=== PATIENT | male | born 1935 | race Caucasian/White ===

== ENCOUNTER → 2016-07-09 14:52 | Outpatient (CLI) | payer MEDICARE, OTHER ==
[2016-06-17 18:26] VITALS: BMI 27.6
[~2016-07-09 14:52] MED LIST: APRESOLINE50 MG PO; ASPIRIN81 MG PO; CARDURA2 MG PO; CATAPRES0.1 MG PO; CELEXA20 MG PO; COZAAR100 MG PO; ELIQUIS2.5 MG PO; LANTUS SOL100 UNIT/1 SQ; LASIX80 MG PO; MEGACE40 MG PO; MULTIPLE VITAMI1 TA1 PO; NEPHRO-VITE RX1 TAB PO; NEURONTIN 100100 MG PO; NIFEDIPINE ER60 MG PO; NORCO 5/325 TAB1 TA1 PO; NOVOLOG100 U/M1; PAMELOR10 MG PO; PRILOSEC20 MG PO; PROCARDIA XL60 MG PO; PROCRIT/EP40000 UNIT SQ; PROSCAR5 MG PO; PROTONIX40 MG PO; TUMS500 MG OR; TUMS500 MG PO; TYLENOL W/CODEI1 TAB PO; VITAMIN D31000 UNI2 PO; ZOCOR40 MG PO
== END | disposition home or self-care (01) ==
LOC: D.US 14:52
DX: I82.402 Acute embolism and thrombosis of unspecified deep veins of left lower extremity (principal)

== ENCOUNTER 2016-08-08 15:38 | Outpatient (CLI) | payer MEDICARE, OTHER ==
[~2016-08-08 15:38] MED LIST changes: -ELIQUIS2.5 MG PO; -NEPHRO-VITE RX1 TAB PO
[2016-08-08 16:56] VITALS: Ht 180.3 cm
[2016-08-08] MEDS ORDERED: ELIQUIS2.5 MG PO (17:02)
[2016-08-08] MEDS ORDERED: NEPHRO-VITE RX1 TAB PO (17:02)
--- NOTE | 2016-08-08 17:57 | NUR ---
2804 I PHONED [facility] AND SPOKE TO NURSE NEW ADAIR THIS PT, REQUESTING A MEDICATION LIST TO BE FAXED AND TIME FRAME FOR TODAYS' STAY.
--- NOTE | 2016-08-08 17:58 | NUR ---
1740 RENAL ADA DIET SERVED.
--- NOTE | 2016-08-08 19:05 | NUR ---
1830 PT ATE ONLY GRAPES FROM SUPER [facility]RAY AND DRANK SOME LIQUID. STATES HE IS NOT HUNGRY.
--- NOTE | 2016-08-08 19:05 | NUR ---
1854 FIRST UNIT BLOOD CHECKED AT BEDSIDE BY THIS NURSE AND MINA RESENDEZ RN, INITIATED BY ALARIS PUMP AT 50/CC/HR.
--- NOTE | 2016-08-08 19:22 | NUR ---
1909 NO PROBLEMS WITH BLOOD RATE INCREASED TO 100/CC/HR.
--- NOTE | 2016-08-08 19:29 | NUR ---
1924 IV SITE PATENT, PT. DOSING AT INTERVALS, AROUSES WITH V.S. CHECKS. RATE INCREASED TO 125/CC/HR.
--- NOTE | 2016-08-08 20:09 | NUR ---
1944 YOLANDE PEREYRA APN NOTIFIED OF BS AND ORDERS RECEIVED 2009 REPORT PHONED TO CALISTA GILL RN.
--- NOTE | 2016-08-08 21:13 | NUR ---
PT BROUGHT BY BED TO ROOM 2131 FROM OUTPATIENT AT 2109. REPORT GIVEN TO NURSE BY BOOKER CORONA RN AT NURSES STATION. 1ST UNIT OF BLOOD UP AND INFUSING. PT IS STILL TO RECEIVED 1 MORE UNIT AND THEN RETURN TO THE [facility].
--- NOTE | 2016-08-08 21:28 | NUR ---
PT WAS BROUGHT TO ROOM SOILED OF BM. CARE WAS PROVIDED.
--- NOTE | 2016-08-08 21:44 | NUR ---
PRBCS UNIT #1 COMPLETED.
--- NOTE | 2016-08-08 23:10 | NUR ---
STARTED 2ND UNIT OF BLOOD AT 2215. VSS. TRANSPORT PERSON FROM [facility] ARRIVED ON UNIT TO TAKE PATIENT BACK TO RESIDENTIAL. INSTRUCTED THAT 2ND UNIT OF BLOOD JUST NOW INFUSING AND IT WILL BE A MINIMUM OF 2 HOURS BEFORE IT IS COMPLETED. CALLED AND SPOKE WITH THONY NURSE AT [facility]. RELAYED ABOVE INFORMATION.
[2016-08-09 00:38] VITALS: BP 141/63
--- NOTE | 2016-08-09 01:16 | NUR ---
2ND UNIT OF PRBCS COMPLETED AT 0115. VSS. PT RESTING. CALLED THE [facility] AND SPOKE WITH LANA THAT PT WAS NOW READY FOR PICKUP. INFORMED THAT IT MAY BE A WHILE BEFORE THEY CAN GET HIGHWAY ENGINEERING TECHNICIAN BACK UP HERE. PT IS RESTING COMFORTABLY. WILL MONITOR AND LET HIM SLEEP UNTIL [facility] ARRIVES.
--- NOTE | 2016-08-09 03:20 | NUR ---
RESTING IN BED. TRANSPORT FROM THE [facility] HAS NOT ARRIVED YET.
[2016-08-09 05:04] VITALS: BP 128/59
--- NOTE | 2016-08-09 06:20 | NUR ---
SPOKE WITH CHRISTI AT THE [facility] TO QUESTION WHEN PATIENT WILL BE PICKED UP TO BE RETURNED TO THEM. SHE STATES THE INDUSTRIAL ENGINEERING MANAGER WILL PICK HIM UP WHEN HE COMES IN. WILL CONTINUE TO MONITOR.
--- NOTE | 2016-08-09 07:37 | NUR ---
PERSONAL CARE FOR BM INCONTINENCE PROVIDED AND PT THEN DRESSED WITH ASSIST OF STAFF FROM THE [facility] AND THIS NURSE. PT NOW CLEAN AND DRY. DISCHARGE BACK TO THE [facility] PER WRITTEN ORDER.
== END 2016-08-09 07:39 ==
LOC: D.OPS 15:38 → D.M2 20:53 → D.OPS 08-09 07:39
DX: D64.9 Anemia, unspecified (principal)

== ENCOUNTER 2016-09-21 09:17 | Inpatient (IN) | payer MEDICARE, OTHER ==
[~2016-09-21] VITALS: Ht 180.3 cm; Wt 79.2 kg
[2016-09-21] VITALS (12 sets, daily range): BP systolic 96–144; BP diastolic 42–67; BMI 23.9
[~2016-09-21 09:17] MED LIST changes: +ELIQUIS2.5 MG PO; +NEPHRO-VITE RX1 TAB PO
[2016-09-21 10:12] LABS: BASOPHILS 0.1 % (0.0-2.0); EOSINOPHILS 0.2 % (0-7); HEMATOCRIT 29.9 % (42.0-54.0); HEMOGLOBIN 9.6 g/dL (13.5-17.5); IMMATURE GRANULOCYTES 0.4 % (0-5); LYMPHOCYTES 1.6 % (15-50); MCH 30.2 pg (26.0-34.0); MCHC 32.1 g/dL (31.0-37.0); MEAN PLATELET VOLUME 11.1 fL (7.4-10.4); MONOCYTES 1.4 % (2-11); NEUTROPHILS 96.3 % (40-80); RBC 3.18 10x6/uL (4.20-6.10); WBC 12.4 10x3/uL (4.8-10.8)
[2016-09-21 10:13] LABS: PLATELET COUNT 173 10x3/uL (130-400)
[2016-09-21 10:37] LABS: ALBUMIN 2.9 g/dL (3.4-5.0); ANION GAP 18.8 mmol/L (8-16); BILIRUBIN - TOTAL 0.39 mg/dL (0.2-1.3); CALCIUM 8.2 mg/dL (8.5-10.1); CARBON DIOXIDE 22.5 mmol/L (21.0-32.0); CREATININE - SERUM 5.2 mg/dL (0.6-1.3); POTASSIUM - SERUM 3.3 mmol/L (3.5-5.1); PROTEIN - SERUM 6.6 g/dL (6.4-8.2)
--- NOTE | 2016-09-21 12:49 | NUR ---
RECIEVED REPORT FROM HARPREET IN [facility] TO RECIEVE PT TO UNIT.
--- NOTE | 2016-09-21 13:00 | NUR ---
PT ARRIVED FROM ER AT THIS TIME VIA BED. ALERT AND ORIENTED. NO ACUTE DISTRESS NOTED. WILL CONTINUE PLAN OF CARE.
--- NOTE | 2016-09-21 13:19 | NUR ---
PT ABOUT TO START ANTIBIOTICS. WILL START ANTIBIOTICS AFTER DIALYSIS COMPLETE.
--- NOTE | 2016-09-21 15:36 | NUR ---
FAMILY AT BEDSIDE. UPDATE GIVEN. NO ACUTE DISTRESS NOTED. CODE WORD MADE. WILL CONTINUE PLAN OF CARE.
--- NOTE | 2016-09-21 18:26 | NUR ---
LEFT AT THIS TIME FOR CT VIA BED ACCOMPANIED BY HOSPITAL STAFF. NO ACUTE DISTRESS NOTED. WILL CONTINUE PLAN OF CARE.
--- NOTE | 2016-09-21 18:27 | NUR ---
Mr. Castillo had bedside hemodialysis today via his left lower arm av fistula from 1356 until 1656. Average blood flow was 350 mls/minue. Net fluid removed was 2000 mls. Post vital signs were:B/P:103/53, HR:66, Temp: 98.1, Resps:16. Pt. was pretty hypotensive during treatment. Infused albumin 12.5 grams IV times one dose.No other problems.
--- NOTE | 2016-09-21 18:35 | NUR ---
RETURNED FROM CT AT THIS TIME VIA BED. NO ACUTE DISTRESS NOTED. WILL CONTINUE PLAN OF CARE.
--- NOTE | 2016-09-21 19:45 | NUR ---
RECEIVED CARE OF PT, ASSESSMENT PER FLOWSHEET. PT ALERT AND ORIENTED, ON 5L O2 VIA NC, LT LOWER ARM FISUTLA NOTED, DRESSING CDI, POSITIVE BRUIT AND THRILL, PPP, HR SR AT A RATE OF 74 ON CM, BREATH SOUNDS DIMINISHED IN BILATERAL BASES, SKIN ASSESSMENT PER FLOWSHEET. ASSISTED PT TO COMFORTABLE POSITION, CALL LIGHT IN REACH, BED LOW, SR UP X 2, WILL MONITOR.
--- NOTE | 2016-09-21 21:37 | NUR ---
NO VISITORS PRESENT AT THIS TIME, PT RESTING IN BED WITH EYES CLOSED, VSS, CONT TO MONITOR.
--- NOTE | 2016-09-21 23:45 | NUR ---
REASSESSMENT PER FLOWSHEET, NO ACUTE CHANGES NOTED, REPOSITIONED FOR COMFORT, CALL LIGHT IN REACH, CONT POC.
[2016-09-22] VITALS (24 sets, daily range): BP systolic 126–161; BP diastolic 52–84; Ht 180.3 cm; Wt 79.2 kg
--- NOTE | 2016-09-22 01:10 | NUR ---
PT RESTING IN BED WITH EYES CLOSED, AROUSES EASILY TO VOICE, DENIES ANY NEEDS AT THIS TIME, POSITIONED FOR COMFORT, VSS.
--- NOTE | 2016-09-22 03:45 | NUR ---
REASSESSMENT PER FLOWSHEET, PT POSITIONED FOR COMFORT, HR SR WITH PAC'S AT A RATE OF 75 ON CM, PT DENIES ANY NEEDS AT THIS TIME, BED LOW, CALL LIGHT IN REACH.
[2016-09-22 05:01] LABS: BASOPHILS 0.2 % (0.0-2.0); EOSINOPHILS 0.8 % (0-7); HEMATOCRIT 30.7 % (42.0-54.0); HEMOGLOBIN 9.3 g/dL (13.5-17.5); IMMATURE GRANULOCYTES 0.2 % (0-5); LYMPHOCYTES 11.3 % (15-50); MCH 29.4 pg (26.0-34.0); MCHC 30.3 g/dL (31.0-37.0); MONOCYTES 5.5 % (2-11); PLATELET COUNT 153 10x3/uL (130-400); RBC 3.16 10x6/uL (4.20-6.10); RDW 15.4 % (11.5-14.5); WBC 12.8 10x3/uL (4.8-10.8)
[2016-09-22 05:26] LABS: MCV 97.2 fL (80.0-100.0)
--- NOTE | 2016-09-22 05:45 | NUR ---
PT RESTING IN BED WITH EYES CLOSED, VSS, CONT POC.
[2016-09-22 05:48] LABS: ANION GAP 15.8 mmol/L (8-16); CALCIUM 8.3 mg/dL (8.5-10.1); CARBON DIOXIDE 25.9 mmol/L (21.0-32.0); CREATININE - SERUM 3.7 mg/dL (0.6-1.3); PHOSPHOROUS 5.2 mg/dL (2.5-4.9); POTASSIUM - SERUM 3.7 mmol/L (3.5-5.1); VANCOMYCIN - RANDOM 12.3 ug/mL (10.0-20.0)
--- NOTE | 2016-09-22 08:27 | NUR ---
UP IN BED AWAKE EATING BREAKFAST AT THIS TIME VIA SET UP ASSIST. NO ACUTE DISTRESS NOTED. WILL CONTINUE PLAN OF CARE.
--- NOTE | 2016-09-22 09:55 | NUR ---
SPOKE WITH PT DAUGHTER, UPDATE GIVEN. NO ACUTE DISTRESS NOTED. WILL CONTINUE PLAN OF CARE.
--- NOTE | 2016-09-22 11:45 | NUR ---
UP IN CHAIR BESIDE BED AT THIS TIME WITH ASSIST FROM PHYSICAL THERAPY. NO ACUTE DISTRESS NOTED AT THIS TIME. WILL CONTINUE PLAN OF CARE.
--- NOTE | 2016-09-22 13:41 | NUR ---
LYING IN BED AT THIS TIME. NOTED PT HAS DVT TO LEFT LEG PER US DOPPLER LE X2, NOTIFIED DR ANDREWS WHO WAS ON FLOOR TO SEE PT. ORDERS MADE. NO ACUTE DISTRESS NOTED. WILL CONTINUE PLAN OF CARE.
--- NOTE | 2016-09-22 13:51 | NUR ---
INCONTINENT BOWEL MOVEMENT NOTED. LIQUID. SHIRA CARE AND GURROLA CARE PROVIDED VIA MAX ASSIST. PT TURNS SELF INDEPENDENTLY. NO ACUTE DISTRESS NOTED. WILL CONTINUE PLAN OF CARE.
--- NOTE | 2016-09-22 15:06 | NUR ---
UP IN BED EATING SUPPER AT THIS TIME. NO ACUTE DISTRESS NOTED. WILL CONTINUE PLAN OF CARE.
--- NOTE | 2016-09-22 17:57 | NUR ---
UP IN BED WATCHING TV AT THIS TIME. NO ACUTE DISTRESS NOTED. WILL CONTINUE PLAN OF CARE.
--- NOTE | 2016-09-22 19:45 | NUR ---
RESUMED CARE OF PT, ASSESSMENT PER FLOWSHEET. PT ALERT AND ORIENTED X 4, HR SR WITH OCC PAC'S NOTED AT A RATE OF 79, BREATH SOUNDS DIMINISHED IN BASES, PPP, PT DENIES PAIN OR ANY NEEDS AT THIS TIME, BED LOW, CALL LIGHT IN REACH.
--- NOTE | 2016-09-22 21:05 | NUR ---
NO VISITORS PRESENT AT THIS TIME, WATER PROVIDED PER PT REQUEST, VSS.
--- NOTE | 2016-09-22 23:45 | NUR ---
REASSESSMENT PER FLOWSHEET, NO ACUTE CHANGES NOTED AT THIS TIME. ASSISTED PT WITH REPOSITIONING, CALL LIGHT IN REACH, DENIES ANY NEEDS, VSS.
[2016-09-23] VITALS (14 sets, daily range): BP systolic 111–165; BP diastolic 41–95
--- NOTE | 2016-09-23 01:54 | NUR ---
PT RESTING IN BED WITH EYES CLOSED, AROUSES EASILY TO VOICE, DENIES ANY NEEDS AT THIS TIME, BED LOW, CALL LIGHT IN REACH.
--- NOTE | 2016-09-23 03:45 | NUR ---
REASSESSMENT PER FLOWSHEET, NO ACUTE CHANGES NOTED AT THIS TIME. PT DENIES ANY NEEDS, CALL LIGHT IN REACH, BED LOW.
--- NOTE | 2016-09-23 05:15 | NUR ---
ICE WATER PROVIDED PER PT REQUEST, PT DENIES ANY OTHER NEEDS, CALL LIGHT IN REACH, BED LOW.
[2016-09-23 05:30] LABS: BASOPHILS 0.2 % (0.0-2.0); EOSINOPHILS 2.1 % (0-7); HEMATOCRIT 28.9 % (42.0-54.0); HEMOGLOBIN 9.1 g/dL (13.5-17.5); IMMATURE GRANULOCYTES 0.4 % (0-5); LYMPHOCYTES 14.1 % (15-50); MCHC 31.5 g/dL (31.0-37.0); MCV 95.4 fL (80.0-100.0); MEAN PLATELET VOLUME 10.8 fL (7.4-10.4); MONOCYTES 8.9 % (2-11); NEUTROPHILS 74.3 % (40-80); PLATELET COUNT 165 10x3/uL (130-400); RBC 3.03 10x6/uL (4.20-6.10); RDW 14.8 % (11.5-14.5)
[2016-09-23 05:36] LABS: WBC 9.1 10x3/uL (4.8-10.8)
[2016-09-23 05:50] LABS: ANION GAP 14.8 mmol/L (8-16); CALCIUM 8.7 mg/dL (8.5-10.1); CARBON DIOXIDE 25.3 mmol/L (21.0-32.0); VANCOMYCIN - RANDOM 21.6 ug/mL (10.0-20.0)
[2016-09-23 05:55] LABS: POTASSIUM - SERUM 3.1 mmol/L (3.5-5.1)
--- NOTE | 2016-09-23 08:16 | NUR ---
UP IN BED EATING BREAKFAST AT THIS TIME. NO ACUTE DISTRESS NOTED. WILL CONTINUE PLAN OF CARE.
--- NOTE | 2016-09-23 09:06 | NUR ---
INCONTINENT BOWEL MOVEMENT NOTED AT THIS TIME. SHIRA CARE PERFORMED VIA TOTAL ASSIST. PT TURNED SELF INDEPENDENTLY. NO ACUTE DISTRESS NOTED. WILL CONTINUE PLAN OF CARE.
--- NOTE | 2016-09-23 10:48 | NUR ---
REPORT CALLED TO VINAY FOR PT TO TRANSFER TO ROOM 2104. PT TRANSFERRED VIA WHEELCHAIR ACCOMPANIED BY HOSPITAL STAFF. NO ACUTE DISTRESS. LEFT WITH ALL PERSONAL ITEMS. NO FURTHER ACTIONS.
--- NOTE | 2016-09-23 10:50 | NUR ---
ARRIVE TO ROOM VIA WHEELCHAIR FROM ICU. RESERVE LT ARM SIGNS PLACED. LT FA FISTULA. RT WRIST IV SL. CALL PHARMACY FOR GENTAMYCIN ORDERED AT 9AM. ALERT AND ORIENTED X4. INCONTINENT OF BOWEL AND BLADDER. ESRD OLIGURIA. NO SCDs. DVT LT LEG. RECIEVES LOVENOX INJ. DENIES SOB. DENIES N/V. FSBS 406. 12 UNITS OF HUMALOG GIVEN PER ORDER. INFORM YOLANDE, RENAL MOBILE APPLICATION TESTER OF FSBS. DRESSING ON ABDOMEN FROM PEG TUBE REMOVAL CLEAN DRY INTACT. BP-165/41, P-76, T-98.4, O2-98% 2L NC. DENIES PAIN OR SOB. CONTINUE PLAN OF CARE. BED LOCKED AND LOW. CALL LIGHT IN REACH. TWO SIDERAILS UP.
--- NOTE | 2016-09-23 11:00 | NUR ---
PT TO FLOOR FROM ICU VIA WHEELCHAIR... CHANGED PT HE WAS SOILED. NO OTHER NEEDS AT THIS TIME. ALERT AND ORIENTED.
--- NOTE | 2016-09-23 21:48 | NUR ---
PT AWAKE, ALERT, ORIENTED, DENIES ANY NEEDS. CONTINUE TO MONITOR CLOSELY. BED LOW, CALL LIGHT IN REACH, SIDE RAILS X 2, HOB 30 DEGREES.
[2016-09-24] VITALS: BP 115/47
[2016-09-24 04:00] VITALS: BP 129/52
--- NOTE | 2016-09-24 04:10 | NUR ---
PT LYING IN BED ON RIGHT SIDE, EYES CLOSED, RESPIRATIONS EVEN AND UNLABORED. PT IS EASILY ROUSABLE TO VERBAL STIMULI, TELEMETRY PLACED PER ORDER. CONTINUE TO MONITOR CLOSELY. BED LOW, CALL LIGHT IN REACH, SIDE RAILS X 2, HOB 20 DEGREES.
[2016-09-24 04:59] LABS: BASOPHILS 0.2 % (0.0-2.0); EOSINOPHILS 2.3 % (0-7); HEMATOCRIT 29.4 % (42.0-54.0); HEMOGLOBIN 9.3 g/dL (13.5-17.5); LYMPHOCYTES 8.3 % (15-50); MCH 29.9 pg (26.0-34.0); MCHC 31.6 g/dL (31.0-37.0); MCV 94.5 fL (80.0-100.0); MEAN PLATELET VOLUME 10.8 fL (7.4-10.4); MONOCYTES 6.2 % (2-11); PLATELET COUNT 175 10x3/uL (130-400); RBC 3.11 10x6/uL (4.20-6.10); RDW 14.7 % (11.5-14.5); WBC 9.7 10x3/uL (4.8-10.8)
[2016-09-24 05:29] LABS: ANION GAP 22.4 mmol/L (8-16); CALCIUM 8.4 mg/dL (8.5-10.1); CARBON DIOXIDE 20.5 mmol/L (21.0-32.0); CREATININE - SERUM 5.6 mg/dL (0.6-1.3); GENTAMICIN - TROUGH 3.1 ug/mL (0.5-2.0)
[2016-09-24 05:33] LABS: POTASSIUM - SERUM 3.9 mmol/L (3.5-5.1)
[2016-09-24 08:50] VITALS: BP 117/55
--- NOTE | 2016-09-24 10:00 | NUR ---
ALERT AND ORIENTED X4. AMBULATING IN REYES ASSISTED WITH WALKER AND PHYSICAL THERAPY. AMBULATES 250FT IN REYES. ASSISTANCE NEEDED FROM SITTING TO STANDING POSITION. GAIT STEADY WITH WALKER. MINIMAL HANDS ON ASSIST. ASSIST BACK TO BED. CONTINUE PLAN OF CARE AND SAFETY PRECAUTIONS.
--- NOTE | 2016-09-24 11:31 | NUR ---
WOUND CARE CONSULT: PT HAS A STAGE 2 PRESSURE INJURY TO COCCYX. IT MEASURES 2CM X 2CM. WOUND BED IS PINK AND TENDER. GENTLY CLEANSED AND DRIED. COVERED WITH MEPILEX SACRAL DRESSING. PT STATES HE TRIES TO STAY ON HIS SIDE MUCH POSSIBLE. ABDOMEN HAS OLD PEG SITE. MINIMAL DRAINAGE. CLEANSED AND COVERED WITH 4X4. RECOMMEND AIR OVERLAY MATTRESS SINCE PT HAS THE STAGE 2 PRESSURE INJURY. WOUND CARE WILL CONTINUE MONITORING.
[2016-09-24 12:33] VITALS: BP 123/58
[2016-09-24 16:15] VITALS: BP 111/48
--- NOTE | 2016-09-24 16:48 | NUR ---
ALERT AND ORIENTED X4. SPECIALTY MATTRESS PLACED ON BED. LINEN CHANGE AND BATH COMPLETE. ASSIST BACK TO BED FROM CHAIR. UP IN BED EATING DINNER. DENIES PAIN OR SOB. ABDOMINAL DRESSING CHANGED. BUTTOCKS DRESSING CHANGED. SINUS RHYTHM 85bpm ON TELEMETRY. WAITING FOR DIALYSIS. CONTINUE PLAN OF CARE AND SAFETY PRECAUTIONS. BED LOCKED AND LOW. CALL LIGHT IN REACH. TWO SIDERAILS UP.
--- NOTE | 2016-09-24 18:23 | NUR ---
ALERT AND ORIENTED X4. RESTING IN BED RECIEVING DIALYSIS TREATMENT. SINUS RHTHYM 83bpm ON TELEMETRY. DENIES PAIN OR SOB. CONTINUE PLAN OF CARE AND SAFETY PRECAUTIONS. PREPARE SHIFT CHANGE REPORT.
--- NOTE | 2016-09-24 20:47 | NUR ---
PT JUST FINISHED DIALYSIS VIA BEDSIDE IN HIS ROOM. 1 LITER PER DYALISIS NURSE WAS REMOVED AND THE ORDERED VANCOMYCIN WAS ADMINISTERED. WILL CONTINUE TO MONITOR CLOSELY.
--- NOTE | 2016-09-25 02:54 | NUR ---
PT LYING IN BED, EYES CLOSED, RESPIRATIONS EVEN AND UNLABORED. CONTINUE TO MONITOR CLOSELY. BED LOW, CALL LIGHT IN REACH, SIDE RAILS X 2, HOB 30 DEGREES.
[2016-09-25 04:00] VITALS: BP 144/60
--- NOTE | 2016-09-25 05:35 | NUR ---
URINAL PLACED ON PT TO COLLECT ORDERED U/A AND URINE CXL. CONTINUE TO MONITOR CLOSELY.
[2016-09-25 05:47] LABS: BASOPHILS 0.1 % (0.0-2.0); EOSINOPHILS 0.8 % (0-7); HEMATOCRIT 28.2 % (42.0-54.0); HEMOGLOBIN 9.2 g/dL (13.5-17.5); IMMATURE GRANULOCYTES 0.5 % (0-5); LYMPHOCYTES 9.7 % (15-50); MCH 30.4 pg (26.0-34.0); MCHC 32.6 g/dL (31.0-37.0); MCV 93.1 fL (80.0-100.0); MEAN PLATELET VOLUME 11.3 fL (7.4-10.4); MONOCYTES 6.4 % (2-11); NEUTROPHILS 82.5 % (40-80); PLATELET COUNT 162 10x3/uL (130-400); RBC 3.03 10x6/uL (4.20-6.10); RDW 14.4 % (11.5-14.5); WBC 10.8 10x3/uL (4.8-10.8)
[2016-09-25 06:12] LABS: ANION GAP 16.9 mmol/L (8-16); CALCIUM 7.9 mg/dL (8.5-10.1); CARBON DIOXIDE 25.7 mmol/L (21.0-32.0); CREATININE - SERUM 3.9 mg/dL (0.6-1.3); PHOSPHOROUS 4.4 mg/dL (2.5-4.9); POTASSIUM - SERUM 3.6 mmol/L (3.5-5.1)
--- NOTE | 2016-09-25 07:25 | NUR ---
RECEIVED REPORT. ASSUMED CARE OF PATIENT. CALL LIGHT WITHIN REACH. DENIES NEEDS. STATES WAS IN FOR AM ROUNDS. 1ST STEP OVERLAY PATENT. NO DISTRESS. DENIES PAIN.
[2016-09-25 07:33] LABS: APPEARANCE CLEAR (CLEAR); BILIRUBIN NEGATIVE (NEGATIVE); COLOR YELLOW (YELLOW); GLUCOSE 250 mg/dL (NEGATIVE); KETONE SMALL mg/dL (NEGATIVE); LEUKOCYTE ESTERASE 2+ (NEGATIVE); NITRITE NEGATIVE (NEGATIVE); PROTEIN 1+ mg/dL (NEGATIVE); SPECIFIC GRAVITY 1.005 (1.005-1.020); UROBILINOGEN NORMAL (NORMAL)
[2016-09-25 07:34] LABS: AMORPHOUS SEDIMENT <1+ /lpf (NONE SEEN); BACTERIA FEW /hpf (NONE SEEN); EPITHELIAL CELLS 0-5 /hpf (0-5); MUCUS <1+ /lpf (NONE SEEN); RED CELLS - URINE 0-5 /hpf (0-5)
[2016-09-25 07:54] VITALS: BP 119/50
[2016-09-25 11:46] VITALS: BP 111/48
--- NOTE | 2016-09-25 12:07 | NUR ---
FSBS 218. 4 UNITS HUMALOG ADMINISTERED PER SLIDING SCALE. NO DISTRESS. SITTING UP TO CHAIR AT BEDSIDE CONSUMING NOON MEAL. CALL LIGHT WITHIN REACH.
--- NOTE | 2016-09-25 12:41 | NUR ---
Nutrition follow-up: Diet: Renal ADA PO intake ~50% of most meals Labs reviewed Wt: 168# +BM Will continue to provide food choices and honor food preferences. RDN will order Nepro BID. Following.
--- NOTE | 2016-09-25 14:02 | NUR ---
DIALYSIS COORDINATOR: PATIENT PATHWAYS: [facility] MON/WED/FRI 2ND SHIFT. MED RECORDS FORWARDED TO THE HOME UNIT. DORIS DC
[2016-09-25 15:43] VITALS: BP 135/44
--- NOTE | 2016-09-25 16:50 | NUR ---
FSBS 229. 4 UNITS HUMALOG AND 15 UNITS HUMULIN N ADMINISTERED AT THIS TIME PER ORDERS. PATIENT CONSUMING PM MEAL AT THIS TIME. NO DISTRESS.
--- NOTE | 2016-09-25 18:33 | NUR ---
RESTING IN BED WITH EYES OPEN, 1ST STEP OVERLAY PATENT. NO DISTRESS. DENIES NEEDS. CALL LIGHT WITHIN REACH.
[2016-09-25 21:58] VITALS: BP 139/46
--- NOTE | 2016-09-25 22:07 | NUR ---
PT AWAKE, ALERT, ORIENTED. PT PROJECTILE VOMITED, PRODUCING A LARGE AMOUNT OF THICK, BROWN EMESIS, POSSIBLE FOOD PARTICLES PRESENT. PT IS SHAKING/TREMBLING AND C/O BEING COLD. TEMP WHEN CHECKED IS 99, AND PT DID HAVE A LOW GRADE TEMP THIS AM OF 100.2. PT IS INCONTINENT OF BOWEL AND BLADDER, AND HAS A BM EVERY TIME HE COUGHS, WHICH IS FREQUENTLY. I SPOKE WITH UTE PEREYRA, OIL BURNER INSTALLER FOR RENAL WHO ORDERED IV TYLENOL R/T PTS N/V, ZOFRAN PRN N/V, AND LOW DOSE ATIVAN IV PRN TREMORS/ANXIETY. PT STATES HE DOES NOT FEEL GOOD, MUCH WORSE FROM YESTERDAY AND EVEN THIS AM. WILL COLLECT A STOOL SAMPLE. WILL HOLD INSULIN TEMPORARILY R/T PTS N/V AND ONLY TREAT IS FSBS BECOMES >200 AT THIS TIME. WILL MONITOR CLOSELY.
--- NOTE | 2016-09-25 22:43 | NUR ---
PT VOMITED AGAIN WHILE GIVING HIS PRN ZOFRAN AND ATIVAN. AMOUNT WAS LESS THAN THE FIRST TIME, STILL YELLOW/BROWN, THICK EMESIS. PT CURRENTLY RESTING COMFORTABLY, EMESIS BASIN IN PTS HAND. CONTINUE TO MONITOR CLOSELY.
[2016-09-26] VITALS: BP 111/61
--- NOTE | 2016-09-26 04:21 | NUR ---
PT HAS NOT HAD ANY MORE VOMITING SINCE GIVEN PRN ZOFRAN. PT HAS BEEN RESTING COMFORTABLY, DENIES ANY NEEDS. CONTINUE TO MONITOR CLOSELY.
[2016-09-26 04:47] LABS: BASOPHILS 0.1 % (0.0-2.0); EOSINOPHILS 0.3 % (0-7); HEMATOCRIT 28.3 % (42.0-54.0); IMMATURE GRANULOCYTES 0.6 % (0-5); LYMPHOCYTES 6.6 % (15-50); MCH 29.6 pg (26.0-34.0); MCHC 31.8 g/dL (31.0-37.0); MCV 93.1 fL (80.0-100.0); MEAN PLATELET VOLUME 10.7 fL (7.4-10.4); MONOCYTES 4.4 % (2-11); PLATELET COUNT 167 10x3/uL (130-400); RBC 3.04 10x6/uL (4.20-6.10); RDW 14.4 % (11.5-14.5); WBC 12.8 10x3/uL (4.8-10.8)
--- NOTE | 2016-09-26 05:01 | NUR ---
PT AWAKE, ALERT, ORIENTED, DENIES NAUSEA AT THIS TIME, ASKING FOR WATER. CONTINUE TO MONITOR CLOSELY.
[2016-09-26 05:13] LABS: ANION GAP 18.1 mmol/L (8-16); CALCIUM 7.9 mg/dL (8.5-10.1); CARBON DIOXIDE 24.3 mmol/L (21.0-32.0); CREATININE - SERUM 5.2 mg/dL (0.6-1.3); PHOSPHOROUS 5.6 mg/dL (2.5-4.9); POTASSIUM - SERUM 3.4 mmol/L (3.5-5.1)
[2016-09-26 06:05] VITALS: BP 174/65
--- NOTE | 2016-09-26 07:26 | NUR ---
RECEIVED REPORT. NO OTHER NEEDS AT THIS ITKY. WILL CONTINUE PLAN OF CARE.
[2016-09-26 07:55] VITALS: BP 169/48
--- NOTE | 2016-09-26 08:17 | NUR ---
PT IS ALERT. ASSESSMENT DONE PER FLOWSHEET. NO O THER NEEDS
--- NOTE | 2016-09-26 09:52 | NUR ---
pt has co being tired today. pt was noted to of had a rough night. will continue to monitor.
--- NOTE | 2016-09-26 10:20 | NUR ---
called [facility] infection control about pt's positive blood cultures. he tested positive for ecoli at 17 hours and was resistant to levaquin. started new antibiotic per dr orellana. awaiting call back
[2016-09-26 11:51] VITALS: BP 129/83
[2016-09-26 16:05] VITALS: BP 145/54
--- NOTE | 2016-09-26 17:20 | NUR ---
RECEIVED REPORT FROM DAY NURSE, PT IS DOWN IN DIALYSIS AT THIS TIME
--- NOTE | 2016-09-27 00:04 | NUR ---
MARKETING REGIONAL CONSULTANT AT BEDSIDE TO OBTAIN VITALS, CALL LIGHT IN REACH. WILL CONTINUE WITH PLAN OF CARE.
[2016-09-27 01:01] VITALS: BP 157/82
--- NOTE | 2016-09-27 03:19 | NUR ---
ASSESSMENT COMPLETE, SLEEPING, SRX2, ALARM IS ON, CALL LIGHT IN REACH, WILL CONTINUE TO MONITOR
[2016-09-27 04:00] VITALS: BP 119/52
[2016-09-27 04:57] LABS: BASOPHILS 0.3 % (0.0-2.0); EOSINOPHILS 1.3 % (0-7); HEMATOCRIT 28.2 % (42.0-54.0); HEMOGLOBIN 8.9 g/dL (13.5-17.5); IMMATURE GRANULOCYTES 0.5 % (0-5); MCH 29.6 pg (26.0-34.0); MCHC 31.6 g/dL (31.0-37.0); MCV 93.7 fL (80.0-100.0); MONOCYTES 6.8 % (2-11); NEUTROPHILS 79.1 % (40-80); PLATELET COUNT 189 10x3/uL (130-400); RBC 3.01 10x6/uL (4.20-6.10); RDW 14.3 % (11.5-14.5); WBC 11.2 10x3/uL (4.8-10.8)
[2016-09-27 05:16] LABS: ANION GAP 12.1 mmol/L (8-16); CARBON DIOXIDE 29.6 mmol/L (21.0-32.0); CREATININE - SERUM 4.1 mg/dL (0.6-1.3); PHOSPHOROUS 5.2 mg/dL (2.5-4.9)
[2016-09-27 05:24] LABS: POTASSIUM - SERUM 2.7 mmol/L (3.5-5.1)
--- NOTE | 2016-09-27 06:48 | NUR ---
RECEIVED PT REPORT AT 400....PT IS ALERT. NO OTHER NEEDS AT THIS TIME WILL CONTINUE TO MONITOR. WILL CONTINUE PLAN OF CARE.
--- NOTE | 2016-09-27 07:01 | NUR ---
PT IS ALERT. ASSESSMENT DONE PER FLOWSHEET. NO OTHER NEEDS AT THIS TIME. WILL CONTINUE TO MONITOR.
[2016-09-27 08:41] VITALS: BP 111/38
--- NOTE | 2016-09-27 11:05 | NUR ---
NO SS OF DISTRESS AT THIS TIME. WILL CONTINUE TO MONTIOR.
[2016-09-27 12:00] VITALS: BP 130/52
--- NOTE | 2016-09-27 13:11 | NUR ---
Nutrition Follow Up: Chart reviewed. Pt is eating 50% meal avg on a renal ADA diet. Pt is receiving Nepro BID. Noted pt with stage II ulcer to coccyx. No new wt to assess. +BM 09/26/16. Labs noted. Meds noted including Humulin, Humalog. Pt continues with fair po intake. Rec continue current diet, supplement regimen. RD following.
[2016-09-27 16:13] VITALS: BP 168/63
--- NOTE | 2016-09-27 19:30 | NUR ---
RESUMED CARE OF PT, SLEEPING, ON 1ST MATTRESS, BED IS LOW, SRX2,ALARM IS ON, CALL LIGHT IN REACH, WILL CONTINUE TO MONITOR
[2016-09-27 20:00] VITALS: BP 119/52
--- NOTE | 2016-09-28 03:38 | NUR ---
ASSESSMENT COMPLETE PER FLOWSHEET, SLEEPING, BED ALARM IS ON, CALL LIGHT IN REACH, WILL CONTINUE TO MONITOR
[2016-09-28 04:00] VITALS: BP 124/47
[2016-09-28 04:50] LABS: BASOPHILS 0.2 % (0.0-2.0); EOSINOPHILS 1.2 % (0-7); HEMATOCRIT 28.5 % (42.0-54.0); IMMATURE GRANULOCYTES 0.4 % (0-5); LYMPHOCYTES 15.9 % (15-50); MCH 29.3 pg (26.0-34.0); MCHC 31.6 g/dL (31.0-37.0); MCV 92.8 fL (80.0-100.0); MEAN PLATELET VOLUME 11.1 fL (7.4-10.4); MONOCYTES 4.7 % (2-11); NEUTROPHILS 77.6 % (40-80); PLATELET COUNT 201 10x3/uL (130-400); RBC 3.07 10x6/uL (4.20-6.10); WBC 11.3 10x3/uL (4.8-10.8)
[2016-09-28 04:58] LABS: ANION GAP 15.5 mmol/L (8-16); CALCIUM 7.8 mg/dL (8.5-10.1); CARBON DIOXIDE 24.4 mmol/L (21.0-32.0)
[2016-09-28 04:59] LABS: POTASSIUM - SERUM 2.9 mmol/L (3.5-5.1)
--- NOTE | 2016-09-28 06:30 | NUR ---
RECEIVED PT REPORT. WILL CONTINUE PLAN OF CARE. NO OTHER NEEDS AT THIS TIME. WILL CONTINUE TO MONITOR.
[2016-09-28 08:00] VITALS: BP 149/46
--- NOTE | 2016-09-28 08:09 | NUR ---
PT IS ALERT. ASSESSMENT DONE PER FLOWSHEET. NO OTHER NEEDS AT THIS TIME. WILL CONTINUE TO MONITOR.
--- NOTE | 2016-09-28 13:06 | NUR ---
PT IS ALERT. NO SS OF DISTRESS AT THIS TIME. WILL CONTINUE
--- NOTE | 2016-09-28 15:09 | NUR ---
HEMODIALYSIS COMPLETED, NET FLUID REMOVAL OF 2000ML, PATIENT TOLERATED WELL, BLOOD WAS RETURNED, NEEDLES PULLED, AND HEMOSTASIS WAS ACHEIVED.
--- NOTE | 2016-09-28 17:00 | NUR ---
RECEIVED REPORT FROM DAY NURSE, PT IS IN [facility],
--- NOTE | 2016-09-28 19:39 | NUR ---
ALERT/AWAKE DENIES PAIN OR ANY NEEDS. IV IN RT HAND SL INTACT. LEFT ARM FISTULA DRSG C/DI, POSITIVE BRUIT/THRILL NOTED. ORIENTED TO CALL LIGHT FOR ANY NEEDS.
[2016-09-28 20:34] VITALS: BP 134/50
--- NOTE | 2016-09-28 20:45 | NUR ---
ADMIN SCHED MEDS WITH SIPS OF WATER. REQUESED LIGHTS OFF AND DOOR CLOSED.
[2016-09-29 00:26] VITALS: BP 144/53
--- NOTE | 2016-09-29 00:50 | NUR ---
THEATRE PROFESSOR'S CLEANED FOR INCONTINENCE OF STOOL. TOOK SAMPLE TO LAB PER ORDER.
[2016-09-29 04:19] VITALS: BP 148/56
--- NOTE | 2016-09-29 05:25 | NUR ---
SUPERVISOR MOTORCYCLE REPAIR SHOP GIVING BATH. CHECKED BS AT 139. ADMIN A.M. MED. DENIES ANY NEEDS.
[2016-09-29 05:44] LABS: BASOPHILS 0.4 % (0.0-2.0); HEMATOCRIT 28.8 % (42.0-54.0); HEMOGLOBIN 8.9 g/dL (13.5-17.5); IMMATURE GRANULOCYTES 0.4 % (0-5); LYMPHOCYTES 18.4 % (15-50); MCH 28.9 pg (26.0-34.0); MCHC 30.9 g/dL (31.0-37.0); MCV 93.5 fL (80.0-100.0); MEAN PLATELET VOLUME 11.2 fL (7.4-10.4); MONOCYTES 6.7 % (2-11); NEUTROPHILS 73.1 % (40-80); PLATELET COUNT 209 10x3/uL (130-400); RBC 3.08 10x6/uL (4.20-6.10); RDW 14.1 % (11.5-14.5)
[2016-09-29 05:48] LABS: WBC 8.3 10x3/uL (4.8-10.8)
[2016-09-29 05:53] LABS: ANION GAP 13.3 mmol/L (8-16); CALCIUM 7.7 mg/dL (8.5-10.1); CARBON DIOXIDE 26.8 mmol/L (21.0-32.0); POTASSIUM - SERUM 3.1 mmol/L (3.5-5.1)
[2016-09-29 05:54] LABS: CREATININE - SERUM 3.6 mg/dL (0.6-1.3)
--- NOTE | 2016-09-29 07:41 | NUR ---
AM ROUNDS - PT IN BED ON BACK. NONLABORED AND EQUAL BREATHING. 2L O2 VIA NC, RIGHT HAND IV THAT IS SL. NON SKID SOCKS ON, 1ST STEP MATTRESS. MONITOR SHOWES SR, HE 83. WILL CONTINUE TO MONITOR.
[2016-09-29 07:58] VITALS: BP 145/48
[2016-09-29 11:54] VITALS: BP 133/54
[2016-09-29 15:39] VITALS: BP 122/52
--- NOTE | 2016-09-29 18:05 | NUR ---
180-CALL TO DR. FRANCOIS, ANSWERING SERVICE, REGUARDING PT'S HUMULIN. PT'S BS WAS 162 AND COVERED WITH 2 UNITS OF HUMALOG. EMAR CALLS FOR 23 UNITS OF HUMULIN (LONG ACTING). AWATING CALL BACK, WILL CONTINUE TO MONITOR.
--- NOTE | 2016-09-29 18:13 | NUR ---
SPOKE WITH KLAUS LYNN, WITH ALESSANDRO MARCANO, ABOUT THE HUMALIN (LONG ACTING). INSTRUCTED TO GIVE 15 UNITS AND NOT THE SCHEDULED 23 UNITS.
--- NOTE | 2016-09-29 19:03 | NUR ---
SITTING UP IN BED, AAOX3, SKIN WARM AND DRY, RESP UNLABORED, IV PATENT TO RIGHT HAND, O2@2LNC, LEFT LEG ELEVATED ON PILLOWS, NO DISTRESS NOTED
[2016-09-29 20:19] VITALS: BP 160/74
[2016-09-30 00:38] VITALS: BP 145/55
[2016-09-30 04:25] VITALS: BP 154/56
[2016-09-30 05:04] LABS: BASOPHILS 0.4 % (0.0-2.0); EOSINOPHILS 1.4 % (0-7); HEMATOCRIT 28.1 % (42.0-54.0); HEMOGLOBIN 8.8 g/dL (13.5-17.5); IMMATURE GRANULOCYTES 0.5 % (0-5); LYMPHOCYTES 13.9 % (15-50); MCH 29.4 pg (26.0-34.0); MCHC 31.3 g/dL (31.0-37.0); MEAN PLATELET VOLUME 10.6 fL (7.4-10.4); MONOCYTES 4.7 % (2-11); NEUTROPHILS 79.1 % (40-80); PLATELET COUNT 246 10x3/uL (130-400); RBC 2.99 10x6/uL (4.20-6.10); WBC 9.4 10x3/uL (4.8-10.8)
[2016-09-30 05:31] LABS: ANION GAP 17.8 mmol/L (8-16); CALCIUM 7.9 mg/dL (8.5-10.1); CARBON DIOXIDE 23.2 mmol/L (21.0-32.0); CREATININE - SERUM 4.5 mg/dL (0.6-1.3)
[2016-09-30 05:33] LABS: HELICOBACTER PYLORI IGG NEGATIVE (NEGATIVE)
--- NOTE | 2016-09-30 06:26 | NUR ---
RESTING QUIELTY IN BED
--- NOTE | 2016-09-30 07:14 | NUR ---
PT SITTING UP IN BED SLEEPING ARROUSES EASILY DENEIS NEEDS WILL CONT TO MONITOR
[2016-09-30 08:38] VITALS: BP 167/57
[2016-09-30] MEDS ORDERED: FLORAJEN3 CAPS460 MG PO (10:01)
[2016-09-30] MEDS ORDERED: HUMULIN N100 U/ML SC (10:01)
[2016-09-30] MEDS ORDERED: LEVAQUIN250 MG PO (10:02)
--- NOTE | 2016-09-30 11:02 | NUR ---
WEANED PT DOWN TO 1L NC EARLIER AND PT IS STILL 98% ON 1L. TOOK PT O2 OFF AND WILL RECHECK AND MAKE SURE HE HOLDS SAT. 97% ON RA NOW
--- NOTE | 2016-09-30 11:58 | NUR ---
PT O2 SATS ARE HOLDING AT 93-94% ON RA.
--- NOTE | 2016-09-30 12:42 | NUR ---
WENT OVER DC PAPERWORK. DC TELE AND RETURNED TO [employer]. DC PIV WITH CATH TIP INTACT. CALLED DAUGHTER JONAS, THEY ARE GOING TO COME AND MANAGER BUILDING PT AND TAKE HIM HOME.
[2016-09-30 12:45] VITALS: BP 169/64
--- NOTE | 2016-09-30 13:38 | NUR ---
PT DAUGHTER AND SON HERE TO PICK HIM UP. PT WAS WHEELED OUT VIA VIOLIN REPAIRER
--- NOTE | 2016-10-05 10:19 | EC ---
PATIENT:RODDY HESTER DATE OF SERVICE: 09/21/16 SEX: M MEDICAL RECORD: [id number] DATE OF : [birth year] LOCATION:D.M2 D.210 AGE OF PATIENT: 81 ADMISSION DATE: 09/21/16 REFERRING PHYSICIAN: INTERPRETING PHYSICIAN: KAREN MACHUCA MD ECHOCARDIOGRAM REPORT ECHO CHARGES 4 ECHO COMPLETE CLINICAL DIAGNOSIS: ELEVATED BNP/CARDIOMEGALY ECHOCARDIOGRAPHIC MEASUREMENTS (adult normal given) AC root (d.<3.7cm) 3.3 LV Septum d (<1.2 cm> 1.6 Valve Excursion 1.9 LV Septum (systole) 2.2 Left Atria (s.<4.0cm> 3.9 LVPW d(<1.2cm) 1.5 RV (d.<2.3cm) 2.3 LVPW (sytole) 2.1 LV diastole(<5.6CM) 5.2 MV E-F(>70mm/sec) LV systole 3.7 LVOT Diameter 2.2 MV exc.(>10mm) Est.ejection fraction (50-75%) Pericardial Effusion N DOPPLER: LVIT A 117 E 65.0 LA RVSP 20.0 LVOT 109 AOP1/2T Asc. Ao 139 RVOT 61.0 RA PA 79.0 AV Gradient Peak 7.9 AV Mean 3.7 AV Area 3.2 MV Gradient Peak 5.6 MV Mean 1.9 MV Area COMMENTS: Network Services Project Manager: Brendan HOWELLOE Press Shop Supervisor:1 Dr. Machuca TAPE# PACS DATE OF SERVICE: 09/21/2016 Echocardiogram FINDINGS: 1. Left ventricular chamber size is within normal limits. Left ventricular systolic function is normal. Overall ejection fraction estimated at 50%. 2. Left atrium is within normal limits at 3.9 cm. Right atrium and right ventricular chamber sizes are mildly dilated. 3. Valvular structures have normal structure and motion. ECHOCARDIOGRAM REPORT [id number] RODDY HESTER 4. Doppler interrogation reveals moderate mitral regurgitation, trace tricuspid regurgitation. No other valvular insufficiency or stenosis and pulmonary systolic pressure is normal estimated at 20 mmHg. 5. No evidence of pericardial effusion or left ventricular thrombus. TRANSINT:[id number] Voice Confirmation ID: [id number] DOCUMENT ID: [id number] KARNE MACHUCA MD at 1019 CC: [id number] DICTATION DATE: 09/22/1635 COMPUTER ENGINEERING TECHNOLOGIST: 09/22/16 0952 DIS IN 09/30/16 [facility] [address] [id number]
== END 2016-09-30 13:39 | disposition home or self-care (01) | DRG 871 ==
LOC: D.ER 09:17 → D.ICU 11:26 → D.M2 11:26
PROVIDERS: Family Medicine; Internal Medicine Nephrology; ADMIT Internal Medicine Nephrology
PROC: 5A1D60Z (ICD-10-PCS; principal; 2016-09-21)
DX: A41.51 Sepsis due to Escherichia coli [E. coli] (principal); J18.9 Pneumonia, unspecified organism; N18.6 End stage renal disease; I13.2 Hypertensive heart and chronic kidney disease with heart failure and with stage 5 chronic kidney disease, or end stage renal disease; E11.22 Type 2 diabetes mellitus with diabetic chronic kidney disease; I50.9 Heart failure, unspecified; Z99.2 Dependence on renal dialysis; E11.40 Type 2 diabetes mellitus with diabetic neuropathy, unspecified; L89.152 Pressure ulcer of sacral region, stage 2; D63.1 Anemia in chronic kidney disease; K21.9 Gastro-esophageal reflux disease without esophagitis; I08.1 Rheumatic disorders of both mitral and tricuspid valves; Z86.718 Personal history of other venous thrombosis and embolism

== ENCOUNTER 2017-01-16 14:22 | Inpatient (IN) | payer MEDICARE, OTHER ==
[~2017-01-16] VITALS: Ht 180.3 cm; Wt 76.5 kg
--- NOTE | ~2017-01-16 | HEMODYNAMI ---
PATIENT:RODDY HESETR MEDICAL RECORD: [id number] : 33 LOCATION:[address] ADMISSION DATE: 01/17/17 Generatedon:01/17/201716:48 Patient name: RODDY HESTER Patient #: [id number] SSN: DO B: 1935 Date of study: 01/17/2017 Page: Of Hemodynamic Procedure Report Patient Data Patient Demographics Procedure consent was obtained First Name: RODDY Gender: Male Last Name: MIR : 1935 Middle Initial: H Age: 81 year(s) Patient #: [id number] Race: Unknown Additional ID: [id number] Contact details [address]: [address] [place] [address] State: [place] City: [place] Zip code: [address] Admission Admission Data Admission Date: 01/17/2017 Admission Time: 11:06 Room #: D2127 Procedure Procedure Types Cath Procedure Peripheral Cath Diagnostic Procedure Miscellaneous Procedure Description Procedure Date Procedure Date: 01/17/2017 Procedure Start Time: 16:10 Procedure Staff Name Function Fili Saravia MD Performing Physician Analilia Jasso RN Nurse Tessa Wilder RT Scrub Chad Jerez RT Monitor Procedure Data Cath Procedure Fluoroscopy Diagnostic fluoroscopy Total fluoroscopy Time: 1.9 time: 1.9 min min Diagnostic fluoroscopy Total fluoroscopy dose: 149 dose: 149 mGy mGy Contrast Material Contrast Material Type Amount (ml) Isovue 300 42 Diagnostic catheters Device Type Used For End Catheter Placement [facility] Pigtail VESSEL SIZING 5Fr 65CM catheter Procedure Medications Medication Administration Route Dosage Fentanyl I.V. 50 mcg Fentanyl I.V. 50 mcg Hemodynamics Rest Heart Rate: 75 (bpm) Snapshots Pre Cath Intra NCS Post Cath Vital Signs Time Heart Resp SPO2 NIBP (mmHg) Rhythm Pain Sedation Rate (ipm) (%) Status Level (bpm) 16:04:07 75 11 95 Aborted NSR 0 (11) 10(A) , No pain 16:08:56 73 17 95 163/94(126) NSR 0 (11) 10(A) , No pain 16:13:20 78 16 96 155/73(117) NSR 0 (11) 10(A) , No pain 16:17:46 80 22 95 168/68(114) NSR 0 (11) 10(A) , No pain 16:22:45 77 19 95 Measuring NSR 0 (11) 10(A) , No pain 16:23:14 76 17 95 160/65(129) NSR 0 (11) 10(A) , No pain 16:27:40 77 14 94 156/68(115) NSR 0 (11) 10(A) , No pain 16:32:04 78 20 95 161/67(108) NSR 0 (11) 10(A) , No pain 16:36:33 75 13 94 158/69(110) NSR 0 (11) 10(A) , No pain 16:41:32 91 29 95 Measuring NSR 0 (11) 10(A) , No pain 16:42:00 69 15 96 154/83(124) NSR 0 (11) 10(A) , No pain 16:46:27 64 16 96 170/64(125) NSR 0 (11) 10(A) , No pain Medications Time Medication Route Dose Verified Delivered Reason Notes Effectivene ss by by 16:05:49 Fentanyl I.V. 50 Analilia Analilia for mcg Romero Romero sedation RN RN 16:15:10 Fentanyl I.V. 50 Analilia Analilia for mcg Romero Romero sedation RN linux unix system administrator Log Time Note 15:36:17 Chad Jerez RT (R) (CV) sent for patient. Start room use. 15:36:32 Time tracking: Regular hours 15:36:38 Plan of Care:Hemodynamics will remain stable., Cardiac rhythm will remain stable., Comfort level will be maintained., Respiratory function will remain adequate., Patient/ family verbilizes understanding of procedure., Procedure tolerated without complication., Recovers from procedure without complications.. 15:36:49 Patient received from Med II to IR Alert and oriented. Tansferred to table in Supine position. 15:36:51 Correct patient and procedure confirmed by team. 15:36:53 Signed procedure consent form obtained from patient. 15:36:55 ECG and BP/O2 sat monitors applied to patient. 15:36:56 Full Disclosure recording started 15:36:58 - 15:37:02 H&P Date Dictated: 01/17/2017 Within 30 days and on chart.. 15:37:03 Pre-procedure instructions explained to patient. 15:37:03 Pre-op teaching completed and patient verbalized understanding. 15:37:06 Family unavailable. 15:37:08 Patient NPO since Midnight. 15:37:11 Is the patient allergic to Iodine/contrast media? No. 15:37:22 Is patient on blood thinner?Yes 15:37:23 Patient diabetic? Yes. 15:37:25 - 15:37:25 ----Pre-sedation anethsthesia assessment.---- 15:37:28 Previous problem with sedation/anesthesia? No ? 15:37:29 Snore? Yes 15:37:31 Sleep apnea? No 15:37:32 Deviated septum? No 15:37:35 Opens mouth fully? Yes 15:37:36 Sticks out tongue? Yes 15:37:45 Airway obstruction? No ? 15:37:47 Dentures? No ? 15:37:52 Use device set IR Diagnostic 15:37:54 Acist Hand Control opened to sterile field. 15:37:55 Acist Syringe opened to sterile field. 15:37:55 Acist Manifold opened to sterile field. 15:37:56 Bag Decanter opened to sterile field. 15:37:56 Sterile Angiographic Pack opened to sterile field. 16:03:37 Vital chart was started 16:03:38 Baseline sample Acquired. 16:03:42 Rhythm: sinus rhythm 16:05:49 Fentanyl 50 mcg I.V. was administered by Analilia Jasso RN; for sedation; 16::31 IV patent on arrival in right hand with 0.9% NaCl at [facility]. 16::33 Alarms reviewed by R. N. 16::33 Sharps counted by scrub and verified by R.N. 16::41 Right neck area was prepped with chlora-prep and draped in sterile fashion 16::42 Physician arrived 16:: --------ALL STOP TIME OUT------ 16::43 Final Timeout: patient, procedure, and site verified with staff and physician. All members of the team are in agreement. 16::45 Right neck site verified by team. 16::51 Physical assessment completed. ASA score P 3 - A patient with severe systemic disease as per Fili Saravia MD. 16:09:56 Sedation plan: IV Moderate Sedation Versed, Fentanyl 16:10:10 Procedure started. 16:10:15 Local anesthetic to right IJ vein with Lidocaine 1% by Fili Saravia MD.INITIAL ACCESS ONLY 16:15:10 Fentanyl 50 mcg I.V. was administered by Analilia Jasso RN; for sedation; 16:26:04 [place] Sci AMPLATZ Super stiff 180cm guide wire opened to sterile field . 16:26:06 Micropuncture VSI 4FR kit opened to sterile field. 16:26:07 Memopal DOC .035 guide wire opened to sterile field. 16:26:08 TUBING, CONTRAST INJCTN HI PRES opened to sterile field. 16:26:09 Terumo 5Fr Vernon Sheath opened to sterile field. 16:26:12 A Merit F Pigtail VESSEL SIZING 5Fr 65CM catheter was advanced over the wire and used for . 16:26:13 Bard NICOLLE JUGULAR Vena Cava Filter opened to sterile field. 16:27:34 DILATOR, VESSEL 10/20 opened to sterile field. 16:31:44 Nicolle Jugular IVC filter was placed below renal veins. 16:38:06 Procedure ended.(Physican Out) 16:38:50 Fluoroscopy time 01.90 minutes. 16:38:55 Fluoroscopy dose: 149 mGy 16:38:55 Flurop Dose total: 149 16:39:17 Contrast amount:Isovue 300 42ml. 16:39:19 Sharps counted by scrub and verified by R.N. 16:39:21 Insertion/operative site no bleeding no hematoma. 16:39:27 Post-op/insertion site Right Jugular vein dressed using a 4 x 4 and Tegaderm. 16:39:40 Post right IJ vein:stable 16:40:31 Post-procedure physical assessment completed. ASA score P 3 - A patient with severe systemic disease as per Fili Saravia MD. 16:40:35 Post procedure rhythm: unchanged. 16:40:37 Post procedure instruction explained to patient.Patient verbalizes understanding. 16:40:38 Procedure and supply charges have been captured, reviewed, submitted an d are correct. 16:47:54 Report given to [facility]. 16:47:59 Patient transfered to [facility] with Bed. 16:48:45 Vital chart was stopped Device Usage Item Name Manufacture Quantity Catalog Hospital Part Current Minima l Lot# / Number Charge Number Stock Stock Serial# Code Acist Hand Acist 1 29394 607264 [id number] [id number] 5 Control Medical Systems Inc Acist Syringe Acist 1 07543 395016 584474 750202 20 Medical Systems Inc Acist Acist 1 44765 781390 330002 187959 5 Manifold Medical Systems Inc Bag Decanter Microtek 1 2002S 600785 76725 168643 5 Medical Inc. Sterile Cardinal 1 [id number] 453259 529188 5 Angiographic Health Pack [facility] 1 [id number] 028362 909810 5 [id number] AMPLATZ Super Scientific stiff 180cm guide wire Micropuncture VSI VASCULAR 1 7266V 282076 412386 5 VSI 4FR kit SOLUTIONS Memopal DOC .035 Locket 1 C16723 144234 061202 5 [id number] guide wire TUBING, Merit 1 [id number] 530937 488941 012824 5 CONTRAST Medical INJCTN HI PRES Terumo 5Fr Terumo 1 [id number] 331094 889145 312958 40 Vernon Sheath Merit F Merit 1 [id number] 985153 840475 5 Pigtail Medical VESSEL SIZING 5Fr 65CM catheter Bard NICOLLE Ahuja 1 [id number] 521324 460105 817903 5 [id number] JUGULAR Vena Cava Filter DILATOR, Memopal Medical 1 [id number] 235285 78471 443875 5 [id number] VESSEL 04/12 Signature Audit Davis Stage Time Signature Unsigned Intra-Procedure 01/17/2017 Chad 4:48:42 PM Meri RT (R) (CV) Signatures Monitor : Chad Signature : Meri RT Date : Time : [address] [place] [address]
[2017-01-16 12:29] LABS: INR 2.43 (0.85-1.17); PROTIME 26.3 SECONDS (11.6-15.0)
[~2017-01-16 14:22] MED LIST changes: +FLORAJEN3 CAPS460 MG PO; +HUMULIN N100 U/ML SC; +LEVAQUIN250 MG PO
--- NOTE | 2017-01-16 15:00 | NUR ---
ARRIVE TO ROOM VIA PERSONAL WHEELCHAIR FROM DIALYSIS CENTER. ALERT AND ORIENTED X4. LT ARM FISTULA ACTIVELY BLEEDING. PRESSURE HELD AT SITE UNTIL BLEEDING STOPPED. ACTIVELY VOMITING. PRN ZOFRAN GIVEN. IV SITED TO RT WRIST 20G SUCCESSFUL X1 ATTEMPT. DENIES ANY NEEDS. FAMILY AT BEDSIDE. CONTINUE ADMISSION PROCESS. NO SCDs. TAKES COUMADIN.
[2017-01-16] MEDS ORDERED: MULTI-DAY VITAM1 TAB PO (15:06)
[2017-01-16] MEDS ORDERED: COUMADIN2.5 MG PO (15:06)
[2017-01-16] MEDS ORDERED: LANTUS INSULIN10 ML (15:09)
[2017-01-16 15:13] VITALS: BP 131/43
[2017-01-16 15:33] LABS: INR 2.45 (0.85-1.17); PROTIME 26.7 SECONDS (11.6-15.0)
[2017-01-16 15:36] LABS: LYMPHOCYTES 21.9 % (15-50); MCH 31.5 pg (26.0-34.0); MCHC 34.6 g/dL (31.0-37.0); MCV 91.1 fL (80.0-100.0); MEAN PLATELET VOLUME 10.9 fL (7.4-10.4); NEUTROPHILS 69.6 % (40-80); RDW 12.2 % (11.5-14.5); WBC 6.4 10x3/uL (4.8-10.8)
[2017-01-16 15:39] LABS: RBC 1.68 10x6/uL (4.20-6.10)
[2017-01-16 15:40] LABS: HEMATOCRIT 15.3 % (42.0-54.0); HEMOGLOBIN 5.3 g/dL (13.5-17.5); PLATELET COUNT 156 10x3/uL (130-400)
[2017-01-16 17:06] VITALS: BP 131/43; BMI 24.3
--- NOTE | 2017-01-16 18:03 | NUR ---
ALERT AND ORIENTED X4. BLOOD CONSENT FOR BLOOD TRANSFUSION SIGNED ON CHART. INITIATE UNIT 1 OUT OF 2 UNITS PRBC TRANSFUSION. TRANSFUSION STARTED AT 75ml/HR FOR FIRST 15mins. BP-126/62, P-81, R-16, T-98.7. REMAIN IN ROOM FIRST 15 MINS TO MONITOR FOR ANY REACTIONS. CONTINUE PLAN OF CARE AND SAFETY PRECAUTIONS.
--- NOTE | 2017-01-16 18:18 | NUR ---
ALERT AND ORIENTED X4. RESTING IN BED. UNIT 1 PRBC TRANSFUSION INFUSING. NO SIGNS OF REACTION. BP-124/58, P-78, R-16, T-99. TRANSFUSION INCREASED TO 100mL/HR. DENIES ANY NEED. CONTINUE PLAN OF CARE AND SAFETY PRECAUTIONS. SINUS RHTHYM ON TELEMETRY.
--- NOTE | 2017-01-16 19:20 | NUR ---
ASSESSMENT COMPLETE PER FLOWSHEET. PRBC INFUSING.
[2017-01-16 20:00] VITALS: BP 138/64
--- NOTE | 2017-01-17 | NUR ---
SLEEPING NO DISTRESS NOTED. SR UP X 2.
--- NOTE | 2017-01-17 02:00 | NUR ---
SLEEPING NO DISTRESS NOTED. SR UP X 2.
--- NOTE | 2017-01-17 04:00 | NUR ---
SLEEPING NO DISTRESS NOTED. SR UP X 2. CALL LIGHT WITHIN REACH.
[2017-01-17 04:20] VITALS: BP 136/59
--- NOTE | 2017-01-17 05:45 | NUR ---
MEDS GIVEN. VOICES NO CO AT TIME.
[2017-01-17 06:05] LABS: BASOPHILS 0.1 % (0-2); EOSINOPHILS 2.2 % (0-7); HEMATOCRIT 20.2 % (42.0-54.0); IMMATURE GRANULOCYTES 0.1 % (0-5); LYMPHOCYTES 19.9 % (15-50); MCH 30.9 pg (26.0-34.0); MCHC 34.2 g/dL (31.0-37.0); MCV 90.6 fL (80.0-100.0); MEAN PLATELET VOLUME 11.8 fL (7.4-10.4); MONOCYTES 8.7 % (2-11); PLATELET COUNT 131 10x3/uL (130-400); RDW 13.7 % (11.5-14.5); WBC 7.1 10x3/uL (4.8-10.8)
[2017-01-17 06:21] LABS: RBC 2.23 10x6/uL (4.20-6.10)
[2017-01-17 06:22] LABS: HEMOGLOBIN 6.9 g/dL (13.5-17.5)
[2017-01-17 06:30] LABS: ALBUMIN 2.6 g/dL (3.4-5.0); ANION GAP 14.9 mmol/L (8-16); BILIRUBIN - TOTAL 0.63 mg/dL (0.2-1.3); CALCIUM 7.4 mg/dL (8.5-10.1); CARBON DIOXIDE 28.1 mmol/L (21.0-32.0); PHOSPHOROUS 4.8 mg/dL (2.5-4.9); PROTEIN - SERUM 5.4 g/dL (6.4-8.2)
[2017-01-17 06:34] LABS: INR 2.25 (0.85-1.17); PROTIME 24.9 SECONDS (11.6-15.0)
[2017-01-17 08:17] VITALS: BP 164/71
--- NOTE | 2017-01-17 09:24 | NUR ---
ADMINISTERED MORNING MEDICATIONS, PT IN BED, DENIES ANY NEEDS AT THIS TIME. CALL LIGHT IN REACH, NAD NOTED, WILL CONTINUE TO MONITOR.
[2017-01-17 11:22] VITALS: BP 154/59
--- NOTE | 2017-01-17 12:30 | NUR ---
PAGED YOLANDE PEREYRA, WAITING ON HER TO CALL BACK.
--- NOTE | 2017-01-17 12:30 | NUR ---
TALKED TO BAYLEE IN SPECIALS, WHO STATED THAT PT COULD HAVE IVC FILTER PLACEMENT TODAY IF HE HAD A BLOOD TRANSFUSION TO HAVE HIS H&H MORE STABLE. WILL PAGE YOLANDE PEREYRA WITH MATIAS.
--- NOTE | 2017-01-17 12:56 | NUR ---
PT IN BED, EATING LUNCH, DENIES ANY NEEDS AT THIS TIME. CALL LIGHT IN REACH, FAMILY AT BEDSIDE, NAD NOTED, WILL CONTINUE TO MONITOR.
[2017-01-17 13:06] VITALS: Ht 180.3 cm; Wt 76.5 kg
--- NOTE | 2017-01-17 13:20 | NUR ---
YOLANDE PEREYRA PAGED, WAITING ON HER TO CALL BACK.
--- NOTE | 2017-01-17 14:00 | NUR ---
PAGED DR. VELAZCO, WAITING ON HIM TO CALL BACK.
--- NOTE | 2017-01-17 14:20 | NUR ---
INFOMRED TOMI WITH SPECAILS WHAT DR. URENA HAD STATED. TOMI WITH SPECIALS STATED THAT LONG WE COULD HAVE BLOOD HANGING THEY COULD DO FILTER PLACEMENT. 1425- NOTIFIED DR. VELAZCO AND NEW ORDERS FOR 2UNITS OF PRBCS TO TRANSFUSE NOW GIVEN. 1430- CONSENTS SIGNED FOR PROCEDURE AND BLOOD STARTED INFUSING AT THIS TIME. VITAL SIGNS STABLE. NAD NOTED, DANITA FROM SPECIALS HERE TO TAKE PT TO IR.
[2017-01-17 16:03] VITALS: BP 176/62
--- NOTE | 2017-01-17 17:03 | NUR ---
RECEIVED PT BACK TO ROOM VIA BED, DRESSING RT JUGULAR, VITAL SIGNS STABLE, PRBC'S INFUSING TO RT WRIST IV. NAD NOTED, WILL CONTINUE TO MONITOR.
[2017-01-17 19:00] VITALS: BP 174/76
[2017-01-17 20:31] VITALS: BP 175/80
--- NOTE | 2017-01-17 21:57 | NUR ---
SECOND UNIT OF PRBCS COMPLETED. VSS THROUGHOUT TRANSFUSION. FLUSHED PIV AND SL. PTS BED SOILED WITH DARK TARRY STOOLS. INSPECTOR PACKER AT BEDSIDE AND ASSISTING PT IN SHOWER. NO FURTHER NEEDS NOTED AT THIS TIME. CL IN REACH, BED IN LOWEST. WILL CPOC.
--- NOTE | 2017-01-17 22:30 | NUR ---
ASSESSMENT COMPLETE PER FLOWSHEET. VOICES NO CO AT TIME.
--- NOTE | 2017-01-17 23:00 | NUR ---
UP TO SHOWER. NO CO AT TIME.
[2017-01-18] VITALS: BP 166/109
--- NOTE | 2017-01-18 | NUR ---
SLEEPING NO DISTRESS NOTED. SR UP X 2.
--- NOTE | 2017-01-18 02:00 | NUR ---
SLEEPING NO DISTRESS NOTED. SR UP X 2.
[2017-01-18 04:00] VITALS: BP 144/67
--- NOTE | 2017-01-18 04:00 | NUR ---
SLEEPING NO DISTRESS NOTED. SR UP X 2. CALL LIGHT WITHIN REACH.
[2017-01-18 05:35] LABS: ALBUMIN 2.6 g/dL (3.4-5.0); BILIRUBIN - TOTAL 0.52 mg/dL (0.2-1.3); CALCIUM 7.5 mg/dL (8.5-10.1); CARBON DIOXIDE 23.6 mmol/L (21.0-32.0); PHOSPHOROUS 5.4 mg/dL (2.5-4.9); POTASSIUM - SERUM 3.6 mmol/L (3.5-5.1); PROTEIN - SERUM 5.6 g/dL (6.4-8.2)
[2017-01-18 05:36] LABS: CREATININE - SERUM 5.6 mg/dL (0.6-1.3)
--- NOTE | 2017-01-18 06:00 | NUR ---
SLEEPING NO DISTRESS NOTED. SR UP X 2. CALL LIGHT WITHIN REACH.
[2017-01-18 06:10] LABS: BASOPHILS 0.1 % (0-2); EOSINOPHILS 2.6 % (0-7); HEMATOCRIT 23.1 % (42.0-54.0); HEMOGLOBIN 8.1 g/dL (13.5-17.5); IMMATURE GRANULOCYTES 0.3 % (0-5); LYMPHOCYTES 27.2 % (15-50); MCH 30.7 pg (26.0-34.0); MCHC 35.1 g/dL (31.0-37.0); MCV 87.5 fL (80.0-100.0); MEAN PLATELET VOLUME 11.4 fL (7.4-10.4); MONOCYTES 9.7 % (2-11); NEUTROPHILS 60.1 % (40-80); PLATELET COUNT 120 10x3/uL (130-400); RBC 2.64 10x6/uL (4.20-6.10); RDW 14.8 % (11.5-14.5)
--- NOTE | 2017-01-18 07:20 | NUR ---
ASSESSMENT DONE. DENIES NEEDS.
[2017-01-18 07:54] VITALS: BP 158/66
[2017-01-18 08:19] LABS: INR 1.47 (0.85-1.17); PROTIME 17.8 SECONDS (11.6-15.0)
--- NOTE | 2017-01-18 09:35 | NUR ---
RESTS IN BED WITH CALL LIGHT IN REACH. FAMILY AT BS. WILL MONITOR NEEDS.
--- NOTE | 2017-01-18 10:47 | CN ---
PATIENT NAME:RODDY HESTER MEDICAL RECORD: [id number] : 33 LOCATION:[facility] D.2127 ADMIT DATE: 01/17/17 ACCOUNT: [id number] CONSULTING PHYSICIAN: ADEBAYO VELASQUEZ MD REFERRING PHYSICIAN: FRANK FLORES MD DATE OF CONSULTATION: 01/17/2017 GASTROENTEROLOGY CONSULTATION REFERRING PHYSICIAN: Dr. Frank Flores. IT RISK AND ASSURANCE MANAGER: Dr. Webber. HISTORY OF PRESENT ILLNESS: The patient is an 81-year-old white male with end-stage renal disease on hemodialysis, who basically was admitted with symptomatic anemia and a heme-positive stool. His hemoglobin was about 6. His INR was quite elevated and he was given vitamin K and his Coumadin was stopped. He has no gross GI bleeding whatsoever, but did have a heme-positive stool. On chart review, it looks like he had an EGD, PEG tube placement back in May 2016. Duodenal ulcer was seen at that time. His last colonoscopy was way back in 2008, revealed small internal hemorrhoids, mild sigmoid diverticulosis and 2 small polyps were removed. PAST MEDICAL HISTORY: As above. He also has neuropathy, diabetes, hypertension, and melanoma removed from his chest 10 years ago. He has also had skin cancer and reflux. It is a little unclear to me exactly why he is on Coumadin. ALLERGIES: No known drug allergies. MEDICATIONS: Home medications include Megace, Procardia, Celexa, Protonix 40 mg b.i.d., insulin, baby aspirin, and Coumadin. He has been on Eliquis, as well as Zocor and vitamins. FAMILY HISTORY: Negative for GI disease. SOCIAL HISTORY: The patient is a nonsmoker, nondrinker. REVIEW OF SYSTEMS: Noncontributory other than HPI. PHYSICAL EXAMINATION: GENERAL: Reveals an elderly white male in no acute distress. VITAL SIGNS: Stable. He is afebrile. CHEST: Clear. HEART: Regular. ABDOMEN: Soft, nontender. EXTREMITIES: No edema. LABORATORY DATA: Reveals white cell count of 6000, hematocrit 20, MCV of 90, platelet count 141,000 with a normal differential. Electrolytes are normal. BUN 85, creatinine 4. Liver enzymes are unremarkable. INR is 2.25 at present. He had an IVC filter placed earlier today. IMPRESSION: CONSULT REPORT [id number] RODDY HESTER 1. Acute on chronic anemia associated with heme-positive stool, on Coumadin of unclear etiology. He has no gross bleeding at all. He does have a history of a duodenal ulcer in May 2016, but does not look like he is on any NSAIDs. 2. End-stage renal disease on hemodialysis. RECOMMENDATIONS: 1. EGD in a.m. 2. Not sure if he is a great candidate for colonoscopy, unless obvious lower GI bleeding occurs. He has multiple comorbidities and advanced age. TRANSINT:[id number] Voice Confirmation ID: [id number] DOCUMENT ID: [id number] ADEBAYO VELASQUEZ MD at 1047 CC: FRANK FLORES MD [id number] DICTATION DATE: 01/17/17 1805 ROLLER PAINTER: 01/18/17 0147 ADM IN [place] [id number] [place] [address]
--- NOTE | 2017-01-18 11:00 | NUR ---
Nutrition follow-up: Pt now NPO for surgery PO intake has been ~100% of last 3 meals Labs reviewed Wt: 174# RDN following.
--- NOTE | 2017-01-18 11:30 | NUR ---
TO GI LAB PER BED
[2017-01-18 11:37] VITALS: BP 163/62
--- NOTE | 2017-01-18 12:59 | NUR ---
RETURN FROM GI LAB PER BED
[2017-01-18 14:09] LABS: HEMATOCRIT 24.3 % (42.0-54.0); HEMOGLOBIN 8.5 g/dL (13.5-17.5)
--- NOTE | 2017-01-18 15:00 | NUR ---
TO HD PER BED
[2017-01-18 19:00] VITALS: BP 161/60
--- NOTE | 2017-01-18 19:30 | NUR ---
RECEIVED REPORT, WILL ASSUME CARE OF PT, PT JUST GOT BACK FROM DIALYSIS, DENIES ANY NEEDS, BED IS LOW, SRX2, CALL LIGHT IN REACH, WILL CONTINUE CARE OF PLAN
[2017-01-18 21:48] LABS: HEMATOCRIT 30.1 % (42.0-54.0); HEMOGLOBIN 10.8 g/dL (13.5-17.5)
--- NOTE | 2017-01-19 03:49 | NUR ---
ASSESSMENT COMPLETE, SEE FLOWSHEET, PT SLEEPING ON L. SIDE, BED IS LOW, SRX2, CALL LIGHT IN REACH, WILL CONTINUE PLAN OF CARE
[2017-01-19 04:00] VITALS: BP 170/77
--- NOTE | 2017-01-19 05:02 | NUR ---
PT RECEIVED BATH/LINEN CHANGE
[2017-01-19 06:55] LABS: BASOPHILS 0.3 % (0-2); EOSINOPHILS 2.3 % (0-7); HEMATOCRIT 28.8 % (42.0-54.0); HEMOGLOBIN 10.3 g/dL (13.5-17.5); IMMATURE GRANULOCYTES 0.1 % (0-5); LYMPHOCYTES 23.1 % (15-50); MCH 31.1 pg (26.0-34.0); MCHC 35.8 g/dL (31.0-37.0); MEAN PLATELET VOLUME 11.3 fL (7.4-10.4); MONOCYTES 9.7 % (2-11); NEUTROPHILS 64.5 % (40-80); PLATELET COUNT 136 10x3/uL (130-400); RDW 14.6 % (11.5-14.5); WBC 6.9 10x3/uL (4.8-10.8)
[2017-01-19 06:57] LABS: RBC 3.31 10x6/uL (4.20-6.10)
[2017-01-19 07:04] LABS: ANION GAP 11.7 mmol/L (8-16); CALCIUM 7.9 mg/dL (8.5-10.1); CARBON DIOXIDE 31.6 mmol/L (21.0-32.0); CREATININE - SERUM 4.4 mg/dL (0.6-1.3); PHOSPHOROUS 5.4 mg/dL (2.5-4.9); POTASSIUM - SERUM 3.3 mmol/L (3.5-5.1)
--- NOTE | 2017-01-19 07:29 | NUR ---
PT IN BED AROUSES WHEN SPOKEN TO DENIES NEEDS AT THIS TIME WILL CONTINUE TO MONITOR
[2017-01-19 08:00] VITALS: BP 140/87
--- NOTE | 2017-01-19 10:36 | NUR ---
+ BRUIT AND THRILL TO LEFT AVF IN WRIST. RIGHT NECK DRESSING C/D/I, PATIENT STATES THAT THIS IS FROM A FILTER THAT WAS PLACED. SALINE LOCK SEEN TO WRIST WRIST. FAMILY AT BEDSIDE.
[2017-01-19 11:53] VITALS: BP 149/53
[2017-01-19 14:08] LABS: HEMATOCRIT 29.2 % (42.0-54.0); HEMOGLOBIN 10.2 g/dL (13.5-17.5)
--- NOTE | 2017-01-19 16:45 | NUR ---
PATIENT LYING IN BED. RESP EVEN AND UNLABORED. NO DISTRESS. DENIES NEEDS.
--- NOTE | 2017-01-19 19:30 | NUR ---
RECEIVED PT IN BED EYES CLOSED RESP UNLABORED NAD NOTED
[2017-01-19 20:00] VITALS: BP 170/58
--- NOTE | 2017-01-19 21:27 | NUR ---
FSBS 227 REGULAR INSULIN 8 UNITS GIVEN SQ ABDOMEN
--- NOTE | 2017-01-19 22:02 | NUR ---
MELATONIN 3 MG GIVEN PO FOR SLEEP PER PT REQUEST
[2017-01-19 22:36] LABS: HEMATOCRIT 28.3 % (42.0-54.0)
[2017-01-20] VITALS: BP 169/67
--- NOTE | 2017-01-20 03:06 | NUR ---
RESTING QUIETLY EYES CLOSED RESP UNLABORED NAD NOTED
[2017-01-20 04:00] VITALS: BP 163/60
[2017-01-20 05:27] LABS: BASOPHILS 0.3 % (0-2); EOSINOPHILS 0.7 % (0-7); HEMATOCRIT 31.2 % (42.0-54.0); HEMOGLOBIN 10.7 g/dL (13.5-17.5); IMMATURE GRANULOCYTES 0.3 % (0-5); LYMPHOCYTES 8.7 % (15-50); MCH 30.5 pg (26.0-34.0); MCHC 34.3 g/dL (31.0-37.0); MCV 88.9 fL (80.0-100.0); MEAN PLATELET VOLUME 11.5 fL (7.4-10.4); MONOCYTES 7.9 % (2-11); NEUTROPHILS 82.1 % (40-80); PLATELET COUNT 151 10x3/uL (130-400); RBC 3.51 10x6/uL (4.20-6.10); RDW 14.2 % (11.5-14.5)
[2017-01-20 05:29] LABS: WBC 9.7 10x3/uL (4.8-10.8)
[2017-01-20 05:47] LABS: ANION GAP 14.6 mmol/L (8-16); CALCIUM 7.8 mg/dL (8.5-10.1); CARBON DIOXIDE 28.4 mmol/L (21.0-32.0); CREATININE - SERUM 5.6 mg/dL (0.6-1.3)
--- NOTE | 2017-01-20 05:57 | NUR ---
GLUCOSE PER LAB DRAW 85
--- NOTE | 2017-01-20 07:54 | NUR ---
ASSESSMENT COMPLETED. TELEMERTY SHOWS SR 68. RIGHT WRIST SL, PATENT. RIGHT ARM WITH AVF. DRSG TO IVC FILER CLEAN AND DRY . UP WITH ASSIST NO NEEDS VOICED. WILL MONITOR
[2017-01-20 08:34] VITALS: BP 170/74
[2017-01-20] MEDS ORDERED: NORVASC5 MG PO (11:09)
--- NOTE | 2017-01-20 13:27 | NUR ---
PT DISCHARGED. IV DCD WITH TIP IN TACK. INSTRUCTIONS GIVE TO PT AND FAMILY. TO PRIVATE CAR PER WHEELCHAIR
== END 2017-01-20 13:29 | disposition home or self-care (01) | DRG 356 ==
LOC: D.M2 14:22 → OBSVTIME 01-17 11:00 → D.M2 01-17 11:06
PROVIDERS: Internal Medicine Gastroenterology; ADMIT Internal Medicine Nephrology
PROC: 06H03DZ Insertion of Intraluminal Device into Inferior Vena Cava, Percutaneous Approach (ICD-10-PCS; 2017-01-17)
PROC: 5A1D00Z (ICD-10-PCS; 2017-01-18)
PROC: 0DJ08ZZ Inspection of Upper Intestinal Tract, Via Natural or Artificial Opening Endoscopic (ICD-10-PCS; principal; 2017-01-18 11:15)
DX: K92.2 Gastrointestinal hemorrhage, unspecified (principal); N18.6 End stage renal disease; D62 Acute posthemorrhagic anemia; I12.0 Hypertensive chronic kidney disease with stage 5 chronic kidney disease or end stage renal disease; I82.412 Acute embolism and thrombosis of left femoral vein; I82.442 Acute embolism and thrombosis of left tibial vein; D63.1 Anemia in chronic kidney disease; K21.9 Gastro-esophageal reflux disease without esophagitis; K31.819 Angiodysplasia of stomach and duodenum without bleeding; Z99.2 Dependence on renal dialysis

== ENCOUNTER → 2017-02-26 09:01 | Outpatient (CLI) | payer MEDICARE, OTHER ==
[2017-01-17 13:06] VITALS: BMI 24.6
[~2017-02-26 09:01] MED LIST changes: +COUMADIN2.5 MG PO; +LANTUS INSULIN10 ML; +MULTI-DAY VITAM1 TAB PO; +NORVASC5 MG PO
== END | disposition home or self-care (01) ==
LOC: D.CT 09:01
DX: C44.399 Other specified malignant neoplasm of skin of other parts of face (principal)

== ENCOUNTER 2017-04-17 18:23 | Inpatient (IN) | payer MEDICARE, OTHER ==
[2017-04-17 19:30] LABS: APPEARANCE HAZY (CLEAR); BACTERIA MODERATE /hpf (NONE SEEN); BILIRUBIN NEGATIVE (NEGATIVE); COLOR RED (YELLOW); GLUCOSE NEGATIVE (NEGATIVE); KETONE NEGATIVE (NEGATIVE); NITRITE NEGATIVE (NEGATIVE); PROTEIN 2+ mg/dL (NEGATIVE); RED CELLS - URINE >50 /hpf (0-5); UROBILINOGEN NORMAL (NORMAL)
[2017-04-17 21:12] LABS: BASOPHILS 0.1 % (0-2); EOSINOPHILS 1.6 % (0-7); HEMATOCRIT 43.2 % (42.0-54.0); HEMOGLOBIN 14.6 g/dL (13.5-17.5); IMMATURE GRANULOCYTES 0.3 % (0-5); LYMPHOCYTES 23.7 % (15-50); MCH 31.9 pg (26.0-34.0); MCHC 33.8 g/dL (31.0-37.0); MCV 94.3 fL (80.0-100.0); MONOCYTES 10.6 % (2-11); NEUTROPHILS 63.7 % (40-80); PLATELET COUNT 144 10x3/uL (130-400); RBC 4.58 10x6/uL (4.20-6.10); RDW 12.5 % (11.5-14.5); WBC 7.4 10x3/uL (4.8-10.8)
[2017-04-17 21:28] LABS: ANION GAP 18.2 mmol/L (8-16); BILIRUBIN - TOTAL 0.34 mg/dL (0.2-1.3); CALCIUM 8.9 mg/dL (8.5-10.1); CREATININE - SERUM 4.7 mg/dL (0.6-1.3); POTASSIUM - SERUM 4.2 mmol/L (3.5-5.1); PROTEIN - SERUM 8.1 g/dL (6.4-8.2)
[2017-04-18] VITALS: BP 155/58
[2017-04-18] MEDS ORDERED: NOVOLOG100 U/M1 (00:34)
[2017-04-18] MEDS ORDERED: RENA-VITE TABL0.8 MG PO (00:38)
--- NOTE | 2017-04-18 00:54 | NUR ---
PT ARRIVED ON UNIT VIA WC AND HOSPITAL STAFF. ORIENTED PT TO ROOM.
--- NOTE | 2017-04-18 01:59 | NUR ---
PT LYING IN BED. RESTING QUIETLY. BED IN LOWEST POSITION AND CALL LIGHT WITHIN REACH.
--- NOTE | 2017-04-18 02:49 | NUR ---
PT LYING IN BED WITH HOB UP FOR COMFORT. EYES CLOSED. CHEST RISING AND FALLING. BED IN LOWEST POSITION AND CALL LIGHT WITHIN REACH.
--- NOTE | 2017-04-18 04:42 | NUR ---
CHARGE NURSE JANY DID PT'S ASSESSMENT.
--- NOTE | 2017-04-18 05:18 | NUR ---
CALL LIGHT IN REACH, WILL CONTINUE WITH PLAN OF CARE.
--- NOTE | 2017-04-18 05:59 | NUR ---
PT LYING IN BED. RESTING QUIETLY. BED IN LOWEST POSITION AND CALL LIGHT WITHIN REACH.
[2017-04-18 08:07] VITALS: BP 156/71
--- NOTE | 2017-04-18 08:25 | NUR ---
SITTING UP IN BED EATING BREAKFAST. RIGHT AC WITH NS INFUSING AT 50 CC/HR. GURROLA CATH SEEN WITH SLIGHT RED COLORED URINE. RESERVE LEFT ARM WITH AVF. ON ROOM AIR. WILL MONITOR.
[2017-04-18] MEDS ORDERED: TUMS500 MG PO (10:47)
--- NOTE | 2017-04-18 10:50 | NUR ---
CONSULT CALLED TO DR SALEH MYSELF TO HIS CELL PHONE ( )
[2017-04-18 11:53] VITALS: BP 155/61
--- NOTE | 2017-04-18 12:06 | NUR ---
NO BILATERAL SCD'S PLACED R/T DVT TO LEFT LOWER EXTREMITY FROM THE "COMMON FEMORAL TO THE POPLITEAL VEIN" PER REPORT DATED 07/09/2016.
--- NOTE | 2017-04-18 14:04 | NUR ---
NEW 20 G SITED TO RIGHT FA RIGHT AC WAS OCCLUDING WITH ARM BENT ALL THE TIME. TOLERATED WELL. OLD RIGHT AC REMOVED WITH CATH TIP INTACT.
--- NOTE | 2017-04-18 14:12 | NUR ---
BILATERAL KNEE HIGH FRANKI HOSE PLACED ON PATIENT ORDERED ALONG WITH NON SKID SOCKS.
--- NOTE | 2017-04-18 17:01 | NUR ---
DENIES NEEDS AT PRESENT TIME. SITTING UP IN BED EATING SUPPER. WILL CONTINUE TO MONITOR FOR ANY NEEDS.
--- NOTE | 2017-04-18 19:36 | NUR ---
PT IN BED RESTING. EVEN AND UNLABORED RESPIRATIONS NOTED. WILL CONTINUE TO MONITOR.
[2017-04-18 20:24] VITALS: BP 138/45
--- NOTE | 2017-04-18 23:30 | NUR ---
CALL LIGHT IN REACH, WILL CONTINUE WITH PLAN OF CARE.
[2017-04-19 00:12] VITALS: BP 123/44
[2017-04-19 05:17] VITALS: BP 145/44
[2017-04-19 05:51] LABS: BASOPHILS 0.5 % (0-2); EOSINOPHILS 4.3 % (0-7); HEMATOCRIT 37.6 % (42.0-54.0); HEMOGLOBIN 13.1 g/dL (13.5-17.5); IMMATURE GRANULOCYTES 0.2 % (0-5); LYMPHOCYTES 32.8 % (15-50); MCH 31.6 pg (26.0-34.0); MCHC 34.8 g/dL (31.0-37.0); MEAN PLATELET VOLUME 11.9 fL (7.4-10.4); MONOCYTES 8.1 % (2-11); NEUTROPHILS 54.1 % (40-80); PLATELET COUNT 139 10x3/uL (130-400); RBC 4.14 10x6/uL (4.20-6.10); RDW 12.2 % (11.5-14.5); WBC 6.6 10x3/uL (4.8-10.8)
[2017-04-19 06:00] LABS: MCV 90.8 fL (80.0-100.0)
[2017-04-19 06:33] LABS: ANION GAP 20.1 mmol/L (8-16); CALCIUM 8.4 mg/dL (8.5-10.1); CARBON DIOXIDE 22.4 mmol/L (21.0-32.0); CREATININE - SERUM 6.6 mg/dL (0.6-1.3); PHOSPHOROUS 7.5 mg/dL (2.5-4.9); POTASSIUM - SERUM 3.5 mmol/L (3.5-5.1)
--- NOTE | 2017-04-19 07:32 | NUR ---
AM ROUNDING DONE WITH PATIENT APPEARING TO BE SLEEPING, RESP ARE EVEN AND NON LABORED. ON ROOM AIR. ON HEART MONITOR SHOWING SR W OCC PAC, HR 71. RIGHT FA SEEN WITH NS INFUSING AT 10 CC/HR WITHOUT PROBLEMS. GURROLA CATH SEEN WITH CLEAR YELLOW URINE. RESERVE LEFT ARM WITH AVF, + BRUIT AND THRILL. BILATERAL FRANKI HOSE ON. WILL CONTINUE TO MONITOR.
[2017-04-19 08:22] VITALS: BP 145/69
--- NOTE | 2017-04-19 10:00 | NUR ---
0930-TO DIALYSIS VIA BED.
--- NOTE | 2017-04-19 12:32 | NUR ---
STILL IN DIALYSIS AT THIS TIME.
--- NOTE | 2017-04-19 13:44 | NUR ---
RETURNS FROM DIALYSIS VIA BED. DENIES NEEDS AT PRESENT TIME. WILL SEE IF PATIENT WILL EAT AND THEN HOOK HIM TO IV FLUIDS.
--- NOTE | 2017-04-19 16:35 | NUR ---
PATIENT HAS DONE WELL POST DIALYSIS, DENIES ANY NEEDS AT PRESENT TIME. WILL CONTINUE TO MONITOR. POC GLUCOSE WAS 271, COVERED WITH 6 U HUMALOG ORDERED PER SLIDING SCALE.
--- NOTE | 2017-04-19 19:47 | NUR ---
CALLED TO ROOM REQUESTING TO BE PLACED ON BEDPAN. PAST USEAGE, LARGE SOFT BROWN FORMED STOOL DENIES ANY FURTHER NEEDS AT THIS TIME.
[2017-04-19 20:00] VITALS: BP 148/60
--- NOTE | 2017-04-19 23:45 | NUR ---
REPORT RECIEVED, RESUMED CARE OF PT. SLEEPING ATT, NO S&S OF ACUTE DISTRESS NOTED. BED LOW AND LOCKED, CALL LIGHT IN REACH. WILL CPOC.
[2017-04-20] VITALS: BP 150/60
[2017-04-20 04:00] VITALS: BP 149/55
[2017-04-20 06:20] LABS: BASOPHILS 0.3 % (0-2); EOSINOPHILS 3.6 % (0-7); HEMATOCRIT 37.1 % (42.0-54.0); HEMOGLOBIN 12.9 g/dL (13.5-17.5); IMMATURE GRANULOCYTES 0.1 % (0-5); LYMPHOCYTES 29.7 % (15-50); MCH 31.4 pg (26.0-34.0); MCHC 34.8 g/dL (31.0-37.0); MCV 90.3 fL (80.0-100.0); MEAN PLATELET VOLUME 12.1 fL (7.4-10.4); MONOCYTES 8.6 % (2-11); NEUTROPHILS 57.7 % (40-80); PLATELET COUNT 131 10x3/uL (130-400); RBC 4.11 10x6/uL (4.20-6.10); RDW 12.2 % (11.5-14.5)
[2017-04-20 06:34] LABS: CALCIUM 8.1 mg/dL (8.5-10.1); CREATININE - SERUM 5.1 mg/dL (0.6-1.3); PHOSPHOROUS 6.6 mg/dL (2.5-4.9)
[2017-04-20 06:36] LABS: ANION GAP 14.6 mmol/L (8-16); CARBON DIOXIDE 29.2 mmol/L (21.0-32.0)
[2017-04-20 06:37] LABS: POTASSIUM - SERUM 2.8 mmol/L (3.5-5.1)
--- NOTE | 2017-04-20 07:40 | NUR ---
AM ROUNDS- PT IN BED, A/O X4, RESP EVEN AND UNLABORED. RT FA INFUSING NS AT 10CC/HR. PT HAD INCONT EPISODE, PROVIDED INCONT CARE, REDNESS NOTED TO BOTTOM, SITE IS BLANCHABLE. PT DENIES ANY OTHER NEEDS AT THIS TIME. BED LOW AND WHEELS LOCKED, CALL LIGHT IN REACH, NAD NOTED, WILL CONTINUE TO MONITOR.
--- NOTE | 2017-04-20 08:27 | NUR ---
AM MEDS GIVEN AT THIS TIME. PT IN BED, EATING BREAKFAST. MOUNTER HAND AT BEDSIDE TO GET VITAL SIGNS. PT DENIES ANY NEEDS AT THIS TIME. CALL LIGHT IN REACH, NAD NOTED, WILL CONTINUE TO MONITOR.
[2017-04-20 08:39] VITALS: BP 154/58
--- NOTE | 2017-04-20 09:05 | NUR ---
PAGED KLAUS OZUNA RENAL COORDINATOR INTEGRATED MARKETING WAITING ALLERGIST/PEDIATRIC PULMONOLOGIST BACK. 907- RECIEVED CALL BACK FROM KLAUS OZUNA, INFOMRED HER ABOUT CRITICAL K OF 2.8. ORDERS FOR 40MEQ OF K-DUR Q4 X3 DOSES RECHECKED LABS AT 2100.
--- NOTE | 2017-04-20 11:32 | NUR ---
BLOOD SUGAR OF 254, 6 UNITS OF HUMALOG GIVEN PER S/S. PT DENIES ANY NEEDS AT THIS TIME. CALL LIGHT IN REACH, NAD NOTED, WILL CONTINUE TO MONITOR.
[2017-04-20 12:00] VITALS: BP 162/63
[2017-04-20 16:00] VITALS: BP 104/47
--- NOTE | 2017-04-20 16:16 | NUR ---
BLOOD SUGAR OF 264, 10UNITS OF HUMALOG GIVEN PER S/S. PT DENIES ANY NEEDS AT THIS TIME. CALL LIGHT IN REACH, NAD NOTED, WILL CONTINUE TO MONITOR.
[2017-04-20 20:00] VITALS: BP 149/65
--- NOTE | 2017-04-20 20:08 | NUR ---
RECEIVED REPORT, WILL ASSUME CARE OF PT, PT DENIES ANY NEEDS, FRANKI HOSES ARE ON, BED IS LOW, SRX2. CALL LIGHT IN REACH, WILL CONTINUE PLAN OF CARE
--- NOTE | 2017-04-20 21:11 | NUR ---
BS-198, PT SAID HE ONLY TAKED HUMALOG IS BS OVER 200, DID GIVE 27 UNITS OF LANTUS
[2017-04-21] VITALS: BP 155/63
[2017-04-21 04:00] VITALS: BP 168/73; BP 68/73
--- NOTE | 2017-04-21 04:54 | NUR ---
ASSESSMENT COMPLETE, SEE FLOWSHEET, PT SLEEPING, BED IS LOW, SRX2, CALL LIGHT IN REACH, WILL CONTINUE PLAN OF CARE
--- NOTE | 2017-04-21 07:15 | NUR ---
AM ROUNDS- PT IN BED, WITH EYES CLOSED, AROUSES EASILY TO VOICE. PT DENIES ANY NEEDS AT THIS TIME. RESP EVEN AND REGULAR, RT FA INFUSING NS AT KVO. GURROLA DRAINING YELLOW URINE TO GRAVITY. BED LOW AND WHEELS LOCKED, BEDSIDE RAILS X2, CALL LIGHT IN REACH, NAD NOTED, WILL CONTINUE TO MONITOR.
[2017-04-21 08:00] VITALS: BP 155/74
--- NOTE | 2017-04-21 08:02 | NUR ---
AM MEDS GIVEN AND 4UNITS OF HUMALOG FOR BLOOD SUGAR OF 161. ALSO HELPED PT FILL OUT MENU. PT IN BED, DENIES ANY OTHER NEEDS AT THIS TIME. CALL LIGHT IN REACH, NAD NOTED, WILL CONTINUE TO MONITOR.
[2017-04-21 12:00] VITALS: BP 126/57
--- NOTE | 2017-04-21 15:31 | NUR ---
GOT PT OFF BEDPAN, PT CLEANED, LINEN CHANGED. BLOOD SUGAR OF 291, 10UNITS OF HUMALOG GIVEN PER S/S. PT DENIES ANY NEEDS AT THIS TIME. CALL LIGHT IN REACH, NAD NOTED, WILL CONTINUE TO MONITOR.
[2017-04-21 16:00] VITALS: BP 155/58
--- NOTE | 2017-04-21 16:38 | NUR ---
PT HAD INCONT EPISODE. PROVIDED COMPLETE BED BATH AT THIS TIME. COMPLETE LINEN CHANGE PROVIDED. BLOOD SUGAR OF 214, 8UNIT OF HUMALOG GIVEN AT THIS TIME. GURROLA EMPTIED AND RECORDED. PT IN BED, DENIES ANY NEEDS AT THIS TIME. CALL LIGHT IN REACH, NAD NOTED,W ILL CONTINUE TO MONITOR.
--- NOTE | 2017-04-21 19:47 | NUR ---
RECEIVED REPORT, WILL ASSUME CARE OF PT, PT LYING ON L.SIDE, DENIES ANY NEEDS, BED IS LOW, SRX2, CALL LIGHT IN REACH, WILL CONTINUE PLAN OF CARE
[2017-04-21 20:00] VITALS: BP 158/103
--- NOTE | 2017-04-21 20:43 | NUR ---
BS-181, GAVE 4 UNITS HUMALOG AND 27 UNITS LANTUS
[2017-04-22] VITALS: BP 163/65
--- NOTE | 2017-04-22 05:17 | NUR ---
ASSESSMENT COMPLETE, PT IS SLEEPING, BED IS LOW, TEDHOSE ARE ON, SRX2, CALL LIGHT IN REACH
--- NOTE | 2017-04-22 08:06 | NUR ---
0700- AM ROUNDING- RECEIVED REPORT FROM DAY CARE ASSISTANT NURSE KAVYA. PT IS CURRENTLY LAYING IN BED ON RIGHT SIDE WITH EYES CLOSED RESTING. ON ROOM AIR. ON MONITOR SHOWING SR, HR 74. IV SEEN TO RIGHT FOREARM WITH NS RUNNING AT KVO (10CC). RESERVE LEFT ARM FOR AVF. GURROLA CATHETER SEEN. NO NEED AT THIS TIME. WILL CONTINUE TO MONITOR AND CONTINUE WITH PLAN OF CARE.
[2017-04-22 08:34] VITALS: BP 144/54
--- NOTE | 2017-04-22 10:47 | NUR ---
SPOKE WITH DR. QUINTIN BRAY NURSE. INFORMED HER THAT [facility] HAS CALLED REGARDING THE US OF ABDOMEN. ASA STATES SHE WILL CALL DR. SALEH AND ASK.
--- NOTE | 2017-04-22 10:53 | NUR ---
RECEIVED CALLBACK FROM ASA. ASA STATES DR. SALEH STATES IT IS OK TO JUST DO US OF KIDNEYS. WILL CANCEL US OF ABDOMEN.
--- NOTE | 2017-04-22 14:25 | NUR ---
PT BACK FROM DIALYSIS VIA BED. PT IS NOW EATING. INSULIN AND MEDICATIONS GIVEN ORDERED.
--- NOTE | 2017-04-22 14:54 | NUR ---
DR. PEREZ ON UNIT. DR. PEREZ CAME TO INFORM ME THAT PT IS HAVING A "TWITCH" TYPE MOVEMENT. PT JUST RECENTLY GOT BACK TO UNIT FROM DIALYSIS. WILL CALL SHANE ENRIQUE WITH RENAL AND INFORM HER OF THIS. WILL CONTINUE TO MONITOR.
--- NOTE | 2017-04-22 15:10 | NUR ---
RECEIVED CALLBACK FROM SHANE ENRIQUE. INFORMED HER OF PT HAVING INVOLUNTARY SHAKES/TWITCHES. NEW ORDERS RECEIVED.
--- NOTE | 2017-04-22 15:17 | NUR ---
Patient Name: RODDY HESTER Admission Status: ER Accout number: [id number] Admission Date: 04-17-2017 : 1935 Admission Diagnosis: Attending: TWYLA OLMOS Current LOS: 5 Anticipated DC Date: 04-23-2017 Planned Disposition: Home Primary Insurance: MEDICARE A & B Discharge Planning Comments: * Is the patient Alert and Oriented? Yes 0 * How many steps to enter\exit or inside your home? NONE 0 * PCP DR. TRAN OR DR. MATTA AT [facility] 0 * Pharmacy [facility] ON [address] OR [facility] MAIL ORDER 0 * Preadmission Environment Home with Family 0 * ADLs Independent 0 * Equipment Walker Wheelchair 0 * Other Equipment NO MEDICAL EQUIPMENT PROVIDER PREFERENCE 0 * List name and contact numbers for known caregivers / representatives who currently or will assist patient after discharge: MARGE GARCIA DTR, 0 * Community resources currently utilized Other 0 * Please name any agencies selected above. OUTPATIENT DIALYSIS, [facility], M/W/F, 0945AM, SON DRIVES TO AND FROM DIALYSIS 0 * Additional services required to return to the preadmission environment? No 0 * Can the patient safely return to the preadmission environment? Yes 0 * Has this patient been hospitalized within the prior 30 days at any hospital? No 0 CM RECEIVED DISCHARGE PLANNING ORDER, CM MET WITH PT IN ROOM TO DISCUSS DISCHARGE PLANNING AND NEEDS. PT REPORTS LIVING AT HOME INDEPENDENTLY WITH SPOUSE AND ADULT DAUGHTER. PT HAS WALKER AND WHEELCHAIR WITH NO MEDICAL EQUIPMENT PROVIDER PREFERENCE. PT HAS NO OUTSIDE SERVICES ASSISTING IN THE HOME. PT ATTENDS OUTPATIENT DIALYSIS, MWF, 0945AM, SON DRIVES TO AND FROM [facility]. CM DISCUSSED AVAILABILITY OF HOME HEALTH, REHAB SERVICES AND MEDICAL EQUIPMENT. PT DENIES DISCHARGE NEEDS, REPORTS HIS DAUGHTER WILL PICK HIM UP FOR DISCHARGE HOME. IMPORTANT MESSAGE FROM MEDICARE PROVIDED AND EXPLAINED. Computer Publisher: Todd Majano
--- NOTE | 2017-04-22 16:12 | NUR ---
CONSENTS FOR PROCEDURE SIGNED BY PT AND PLACED IN CHART. PT IS AWARE THAT HE CANNOT EAT NOR DRINK ANYTHING AFTER MIDNGIHT TONIGHT. NPO SIGNED PLACED ON THE DOOR.
[2017-04-22 16:33] LABS: BASOPHILS 0.3 % (0-2); EOSINOPHILS 2.8 % (0-7); HEMATOCRIT 33.6 % (42.0-54.0); HEMOGLOBIN 11.9 g/dL (13.5-17.5); IMMATURE GRANULOCYTES 0.3 % (0-5); LYMPHOCYTES 18.5 % (15-50); MCH 32.1 pg (26.0-34.0); MCHC 35.4 g/dL (31.0-37.0); MCV 90.6 fL (80.0-100.0); MEAN PLATELET VOLUME 11.6 fL (7.4-10.4); MONOCYTES 8.2 % (2-11); NEUTROPHILS 69.9 % (40-80); PLATELET COUNT 124 10x3/uL (130-400); RBC 3.71 10x6/uL (4.20-6.10); WBC 7.5 10x3/uL (4.8-10.8)
[2017-04-22 16:43] VITALS: BP 169/68
[2017-04-22 16:58] LABS: ANION GAP 13.8 mmol/L (8-16); CALCIUM 8.4 mg/dL (8.5-10.1); CARBON DIOXIDE 27.4 mmol/L (21.0-32.0); CREATININE - SERUM 4.1 mg/dL (0.6-1.3); MAGNESIUM - SERUM 2.1 mg/dL (1.8-2.4); POTASSIUM - SERUM 3.2 mmol/L (3.5-5.1)
[2017-04-22 17:00] LABS: PHOSPHOROUS 3.7 mg/dL (2.5-4.9)
--- NOTE | 2017-04-22 17:23 | NUR ---
SCHUYLER ENRIQUE APN REGARDING PTS POTASSIUM LEVEL (3.2). WILL AWAIT CALLBACK.
--- NOTE | 2017-04-22 17:25 | NUR ---
RECEIVED CALLBACK FROM SHANE ENRIQUE WITH NEW ORDERS RECEIVED.
--- NOTE | 2017-04-22 18:36 | NUR ---
1800- PT IS CURRENTLY SITTING UP IN BED WITH EYES OPEN RESTING. PT GIVEN K-DUR ORDERED FOR LOW POTASSIUM LEVEL ORDERED. NO NEED AT THIS CURRENT TIME. WILL CONTINUE TO MONITOR.
--- NOTE | 2017-04-22 19:42 | NUR ---
RECEIVED REPORT, WILL ASSUME CARE OF PT, PT RESTING, BED IS LOW, SRX2, CALL LIGHT IN REACH, WILL CONTINUE PLAN OF CARE
[2017-04-22 20:30] VITALS: BP 174/72
[2017-04-23 01:44] VITALS: BP 180/75
[2017-04-23 04:40] VITALS: BP 181/66
[2017-04-23 06:16] LABS: BASOPHILS 0.1 % (0-2); EOSINOPHILS 3.5 % (0-7); HEMATOCRIT 34.8 % (42.0-54.0); HEMOGLOBIN 12.1 g/dL (13.5-17.5); IMMATURE GRANULOCYTES 0.3 % (0-5); LYMPHOCYTES 24.3 % (15-50); MCH 31.8 pg (26.0-34.0); MCHC 34.8 g/dL (31.0-37.0); MCV 91.3 fL (80.0-100.0); MEAN PLATELET VOLUME 11.9 fL (7.4-10.4); MONOCYTES 8.6 % (2-11); NEUTROPHILS 63.2 % (40-80); PLATELET COUNT 116 10x3/uL (130-400); RBC 3.81 10x6/uL (4.20-6.10); RDW 12.1 % (11.5-14.5); WBC 7.3 10x3/uL (4.8-10.8)
[2017-04-23 06:29] LABS: ALBUMIN 2.9 g/dL (3.4-5.0); ANION GAP 15.9 mmol/L (8-16); BILIRUBIN - TOTAL 0.33 mg/dL (0.2-1.3); CALCIUM 8.6 mg/dL (8.5-10.1); CARBON DIOXIDE 26.5 mmol/L (21.0-32.0); CREATININE - SERUM 5.1 mg/dL (0.6-1.3); PHOSPHOROUS 4.3 mg/dL (2.5-4.9); POTASSIUM - SERUM 3.4 mmol/L (3.5-5.1); PROTEIN - SERUM 6.7 g/dL (6.4-8.2)
[2017-04-23 07:13] VITALS: BP 155/60
--- NOTE | 2017-04-23 07:31 | NUR ---
AM ROUNDING- RECEIVED REPORT FROM KNIFE EDGER NURSE KAVYA. PT IS CURRENTLY LAYING IN BED ON BACK WITH EYES OPEN RESTING. PT APPEARS TO HAVE INVOLUNTARY JERKS (DR. OLMOS IS AWARE). ON ROOM AIR. ON MONITOR SHOWING SR, HR 72. IV SEEN TO RIGHT FOREARM WITH NS RUNNING AT KVO (10CC). RESERVE LEFT ARM FOR AVF. PER REPORT PTS PROCEDURE IS CANCELLED FOR TODAY (PER DR. OLMOS). NO NEED AT THIS CURRENT TIME. WILL CONTINUE TO MONITOR AND CONTINUE WITH PLAN OF CARE.
--- NOTE | 2017-04-23 08:24 | NUR ---
CALLED DR. SALEH REGARDING DR. MARQUEZ NURSING MESSAGE TO CANCEL PTS PROCEDURE TODAY. NO ANSWER. WILL ATTEMPT TO CALL DR. SALEH BACK.
[2017-04-23 12:57] VITALS: BP 149/89
--- NOTE | 2017-04-23 14:39 | NUR ---
DR. SALEH ON UNIT. SHOWED DR. DELFINO MARQUEZ NURSING MESSAGE REGARDING RESCHEDULING PTS CYSTO. DR. SALEH STATES HE CAN POSSIBLY TO IT SATURDAY. DR. SALEH STATES HE WILL PUT IN HIS NOTES.
--- NOTE | 2017-04-23 15:19 | NUR ---
PT IS HAVING INVOLUNTARY MOVEMENTS/SHAKING. PT GIVEN BENADRYL PRN ORDERED FOR EPS. PT INCONTINENT OF STOOL. THIS NURSE CLEANED PT AND CHANGED LINEN. WILL CONTINUE TO MONITOR.
--- NOTE | 2017-04-23 15:35 | NUR ---
PT GIVEN BENADRYL ORDERED FOR EPS (PER DR. OLMOS). PT IS STILL HAVING INVOLUNTARY TWITCHES AND SHAKES. DR. PEREZ IN ROOM NOW. PAGED JOSE ANGEL DENNY NP REGARDING THIS. WILL AWAIT CALLBACK.
[2017-04-23 16:00] VITALS: BP 143/42
--- NOTE | 2017-04-23 18:39 | NUR ---
PT IS CURRENTLY SITTING UP IN BED WITH EYES OPEN RESTING. KRISTYN SOFIA AND I ASSISTED PT WITH CHANGING LINEN DUE TO LINEN BEING SOILED FROM DINNER. NO FURTHER NEED AT THIS TIME. WILL CONTINUE TO MONITOR.
--- NOTE | 2017-04-23 19:09 | NUR ---
PT IN BED. PLACED PT ON BEDPAN PER REQUEST. DENIES FURTHER NEEDS. WILL CONTINUE TO MONITOR
[2017-04-23 20:00] VITALS: BP 148/59
--- NOTE | 2017-04-23 23:30 | NUR ---
PT IN BED RESTING QUIETLY. BED IN LOW POSITION, CALL LIGHT WITHIN REACH. WILL CPOC.
[2017-04-24] VITALS: BP 149/58
[2017-04-24 04:00] VITALS: BP 140/48
[2017-04-24 05:37] LABS: BASOPHILS 0.2 % (0-2); EOSINOPHILS 0.6 % (0-7); HEMATOCRIT 35.8 % (42.0-54.0); HEMOGLOBIN 12.2 g/dL (13.5-17.5); IMMATURE GRANULOCYTES 0.1 % (0-5); LYMPHOCYTES 6.5 % (15-50); MCH 31.4 pg (26.0-34.0); MCHC 34.1 g/dL (31.0-37.0); MCV 92.3 fL (80.0-100.0); MEAN PLATELET VOLUME 11.7 fL (7.4-10.4); NEUTROPHILS 84.6 % (40-80); PLATELET COUNT 133 10x3/uL (130-400); RBC 3.88 10x6/uL (4.20-6.10); RDW 12.2 % (11.5-14.5); WBC 9.1 10x3/uL (4.8-10.8)
[2017-04-24 06:05] LABS: ALBUMIN 2.9 g/dL (3.4-5.0); ANION GAP 18.3 mmol/L (8-16); BILIRUBIN - TOTAL 0.31 mg/dL (0.2-1.3); CALCIUM 8.6 mg/dL (8.5-10.1); CARBON DIOXIDE 24.3 mmol/L (21.0-32.0); CREATININE - SERUM 6.1 mg/dL (0.6-1.3); MAGNESIUM - SERUM 2.4 mg/dL (1.8-2.4); PHOSPHOROUS 4.8 mg/dL (2.5-4.9); POTASSIUM - SERUM 3.6 mmol/L (3.5-5.1); PROTEIN - SERUM 6.8 g/dL (6.4-8.2)
--- NOTE | 2017-04-24 07:30 | NUR ---
REPORT RECEIVED. PT RESTING QUIELTY, RR EVEN AND UNLABORED. PT IS ALERT AND ORIENTED X4. DENIES NEEDS AT THIS TIME. ASSESSMENT PERFORMED. WILL CTM.
[2017-04-24 08:35] VITALS: BP 157/62
--- NOTE | 2017-04-24 09:30 | NUR ---
PT RESTING QUIETLY. RR EVEN AND UNLABORED. CHANGED STAT LOCK. WILL CTM
--- NOTE | 2017-04-24 11:42 | NUR ---
PT TRANSFERRED TO DAILYSIS X2 ASSIST. RR EVEN AND UNLABORED. WILL CTM UPON RETURN FROM DIALYSIS.
--- NOTE | 2017-04-24 15:45 | NUR ---
PT BACK FROM DIALYSIS. RR EVEN AND ULABORED. PT DENIES NEEDS AT THIS TIME. NO SIGNS OF DISTRESS. ALERT AND ORIENTED X4. WILL CTM.
--- NOTE | 2017-04-24 16:30 | NUR ---
PTS BS IS 150. DID NOT TREAT BS PER SS. PT DENIES NEEDS AT THIS TIME. WILL CTM.
[2017-04-24 16:44] VITALS: BP 169/58
--- NOTE | 2017-04-24 17:00 | NUR ---
CONSENT OBTAINED FOR PROCEDURE TOMORROW. PT ABLE TO SIGN FOR HIMSELF. DENIES FURTHER QUESTIONS AND NEEDS. WILL CTM.
--- NOTE | 2017-04-24 18:30 | NUR ---
PT RESTING QUIELTLY, RR EVEN AND UNLABORED. PT DENIES NEEDS AT THIS TIME. WILL GIVE REPORT ON PT CONDTION FOR THE DAY.
[2017-04-24 19:00] VITALS: BP 159/58
--- NOTE | 2017-04-24 19:40 | NUR ---
PT IN BED WITH EYES OPEN WATCHING TV. PT WAS INCONTINENT OF BOWEL WITH PERICARE PROVIDED AND LINENS CHANGED. NO OTHER CONCERNS NOTED AT THIS TIME. CALL LIGHT IN REACH.
--- NOTE | 2017-04-24 23:50 | NUR ---
PT IN BED WITH EYES CLOSED AND CHEST RISING. EASILY AROUSED TO ENTRY. DRINKS REMOVED DUE TO BEING NPO AFTER MIDNIGHT. NO CONCERNS NOTED. CALL LIGHT IN REACH. WILL CONTINUE TO OBSERVE.
--- NOTE | 2017-04-25 04:47 | NUR ---
PT IN BED WITH EYES CLOSED AND CHEST RISING. NO CONCERNS NOTED. WILL CONTINUE TO OBSERVE. CALL LIGHT IN REACH.
[2017-04-25 05:52] LABS: BASOPHILS 0.2 % (0-2); EOSINOPHILS 0.5 % (0-7); HEMATOCRIT 35.3 % (42.0-54.0); IMMATURE GRANULOCYTES 0.2 % (0-5); LYMPHOCYTES 5.8 % (15-50); MCH 31.3 pg (26.0-34.0); MCV 91.9 fL (80.0-100.0); MONOCYTES 7.7 % (2-11); NEUTROPHILS 85.6 % (40-80); PLATELET COUNT 132 10x3/uL (130-400); RBC 3.84 10x6/uL (4.20-6.10); RDW 12.1 % (11.5-14.5); WBC 9.9 10x3/uL (4.8-10.8)
[2017-04-25 06:12] LABS: ALBUMIN 2.9 g/dL (3.4-5.0); ANION GAP 12.8 mmol/L (8-16); BILIRUBIN - TOTAL 0.3 mg/dL (0.2-1.3); CALCIUM 8.3 mg/dL (8.5-10.1); CARBON DIOXIDE 29.4 mmol/L (21.0-32.0); POTASSIUM - SERUM 3.2 mmol/L (3.5-5.1); PROTEIN - SERUM 6.9 g/dL (6.4-8.2)
[2017-04-25 06:20] LABS: CREATININE - SERUM 4.5 mg/dL (0.6-1.3)
--- NOTE | 2017-04-25 07:30 | NUR ---
INTRODUCED MYSELF TO PT PRIMARY RN FOR TODAYS SHIFT. PT IS A&O RESTING QUIETLY IN BED. PT IS NPO FOR STENT PLACEMENT WITH LATER TODAY. CONSENTS ARE SIGNED AND IN THE CHART. PT VERBALIZED UNDERSTANDING AND IS JUST WAITING PATIENTLY. PT HAS GURROLA IN PLACE DRAINING TO GRAVITY OFF R.SIDE OF BED CLEAR YELLOW URINE. PT DENIES ANY CURRENT PAIN OR NEEDS AT THIS TIME. WILL CPOC.
--- NOTE | 2017-04-25 08:45 | NUR ---
MORNING MEDICATIONS GIVEN WITH A SIP OF WATER. PT IS AWARE TO REMAIN NPO STATUS AND IS WAITING ON SURGERY. NO FURTHER NEEDS AT THIS TIME. WILL CTM.
[2017-04-25 09:14] LABS: HEPATITIS C ANTIBODY <0.1 (0.0-0.9)
[2017-04-25 10:22] VITALS: BP 150/60
--- NOTE | 2017-04-25 12:05 | NUR ---
FSBS 76 NO COVERAGE REQUIRED. SLAG DUMPER HERE FOR PT HOWEVER NO PREOP MEDS HAVE BEEN ORDERED. PER-OP CHECKLIST COMPLETED AND CALLED SX WAITING ON ORDERS.
[2017-04-25 12:08] VITALS: BP 159/67
--- NOTE | 2017-04-25 12:15 | NUR ---
EKG COMPLETED ORDERED AND PLACED IN CHART. SX TECH TAKING PT NOW. SURGERY CALLED AND STATED THEY WILL PRE-OP MEDS WERENT ENTERED.
[2017-04-25 14:33] VITALS: BP 137/51
--- NOTE | 2017-04-25 14:35 | NUR ---
PT BACK FROM SURGERY AND NOW HAS NO GURROAL. VSS AND RECORDED ON FLOWSHEET. PT AWAKE AND ALERT READY TO EAT. TRAY AT BEDSIDE AND ASSISTED PT UP TO EAT. DAUGHTER IN OR WAITING ROOM WAITING TO TALK WITH . NO CURRENT NEEDS AT THIS TIME. WILL CPOC.
[2017-04-25 15:00] VITALS: BP 120/80
--- NOTE | 2017-04-25 15:19 | NUR ---
VSS AND STILL BEING MONITERED PER POST PROCEDURE. PT RESTING QUIETLY WITH DAUGHTER AT BEDSIDE AND STATES LUNCH WAS VERY GOOD. DENIES ANY CURRENT PAIN OR NEEDS AT THIS TIME. CL IN REACH. WILL CPOC.
--- NOTE | 2017-04-25 15:36 | NUR ---
AT BEDSIDE DISCUSSING PROCEDURE WITH PT. THEN WE CALLED PTS DAUGHTER AND GAVE HER REPORT. PT WILL BE DISCHARGED WITH 2 NEW PROSTATE MEDICATIONS AND IS STABLE FOR DISCHARGE AND WANTS TO LEAVE. WILL CALL RENAL FOR ORDERS.
[2017-04-25] MEDS ORDERED: ZESTRIL20 MG PO (16:03)
[2017-04-25] MEDS ORDERED: BACTRIM 400-801 TAB PO (16:05)
[2017-04-25] MEDS ORDERED: PROSCAR5 MG PO (16:05)
[2017-04-25] MEDS ORDERED: FLOMAX0.4 MG PO (16:06)
--- NOTE | 2017-04-25 16:32 | NUR ---
ORDERS OBTAINED FROM PRIMARY RENAL FOR PT TO BE DISCHARGED. D/C PTS R.WRIST PIV WITH CATHETER TIP FULLY INTACT. DISCHARGE TEACHING PROVIDED AND PAPERS SIGNED. RETURNED TELEMETRY TO [facility]. PT VOIDED SINCE PROCEDURE 200ML CONCENTRATED URINE BUT NO BLOOD NOTED. BONNIERIYash CALLED IN TO [facility] REQUESTED AND HARD SCRIPT GIVEN FOR PTS NEW MEDICATIONS FOR HIS PROSTATE AND TEACHING PROVIDED. PT VERBALIZED UNDERSTANDING AND DENIES ANY QUESTIONS OR CONCERNS AND VERBALIZED UNDERSTANDING TO CONTINUE DIALYSIS TOMORROW PER REGULAR SCHEDULE. I CALLED AND RELAYED ALL THIS INFORMATION TO DAUGHTER WHOM IS POA PT REQUESTED AND SHE IS ON HER WAY TO PICK HIM UP. NO FURTHER NEEDS AT THIS TIME. WILL CPOC.
--- NOTE | 2017-04-25 16:40 | NUR ---
HERE AND PT HAS NOT LEFT YET AND WOULD LIKE BACTRIM CONTINUED FOR A TOTAL OF 15 DAYS. CALLED [facility] ON [address] AND SPOKE TO ROMELIA THE PHARMACIST AND MED IS NOW: BACTRIM 400/80MG DAILY FOR 15 DAYS. SPOKE TO PT AND MADE HIM AWARE TO TAKE FOR 15 DAYS. NO FURTHER NEEDS, STILL AWAITING RIDE.
--- NOTE | 2017-04-25 16:58 | NUR ---
PTS FAMILY HERE FOR TRANSPORTATION. CLINICAL ADMINISTRATIVE COORDINATOR'S ASSISTED PT GETTING DRESSED AND INTO W/C. PT LEAVING UNIT NOW.
--- NOTE | 2017-04-26 08:58 | OP ---
PATIENT NAME: RODDY HESTER MEDICAL RECORD: [id number] :34 LOCATION:D. D.[id number] ADMISSION DATE:04/17/17 SURGEON: FRANK SALEH MD DATE OF OPERATION: 04/25/2017 SURGEON: Frank Saleh MD. ANESTHESIA: MAC by Peter Collado CRNA. PREOPERATIVE DIAGNOSES: Emphysematous pyelonephritis, left hydronephrosis, renal failure. PROCEDURES: Cystoscopy, left retrograde pyelogram, left ureteroscopy. FINDINGS: Obstructive BPH. Bilateral refluxing ureteral orifices of the golf hole configuration. 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 On left retrograde pyelogram, there were no filling defects. There is hydroureteronephrosis throughout. Contrast in the bladder actually also went up into the right ureter all the way up to the right renal pelvis level. No strictures seen on left ureteroscopy, BLOOD LOSS: None. CLINICAL HISTORY: This is an 82-year-old male with a history of diabetes mellitus type 2 and end-stage renal failure. He is on hemodialysis via left AV fistula since June of this year. He presented to the Emergency Room with complaint of dysuria and passage of gas from the bladder while voiding. On CT scanning, he was found to have emphysematous pyelonephritis with gas bubbles even in the kidney and gas bubbles in the bladder wall. He was given a Dhaliwal catheter for drainage and started on IV antibiotics. His urine cultures have grown E. coli. He is on the appropriate antibiotics for this. On followup ultrasound, he persisted in having left hydronephrosis. We are going to try to determine if he needs placement of a stent. Also, the cause of the hydronephrosis is unknown. He continues on oral Bactrim on the floor. We gave him Ancef IV in the OR. DESCRIPTION OF PROCEDURE: The patient was given IV sedation. He was then placed in the dorsal lithotomy position, prepped and draped. A 21-Kittitian cystoscope with 30-degree lens was used for visualization. He has bilateral lateral lobe hyperplasia of the prostate, which is obstructive. Going into the bladder, no bladder tumors were seen. The ureteral orifices are single on each side, but they are extremely abnormal. There are very large. In fact, I could actually put the scope through the right ureteral orifice to look into the distal ureter. There is no backing of the ureter at all. There is no intramural tunnel. The ureter is seen to just move vertically from the ureteral orifice. I inserted a 5-Kittitian open-ended ureteral catheter into the left ureteral orifice and we performed a retrograde pyelogram. Hydroureteronephrosis was seen all the way down to the bladder level. However, no obvious area of stricture was seen. No filling defects were seen. In fact, as we watched this, some of the contrast that leaked back into the bladder also migrated spontaneously up the right ureteral orifice into the right kidney. Again, there were no filling defects on the right side. We placed a Sensor wire up to the left renal pelvis. The ureteral catheter was then removed. We then introduced a rigid ureteroscope when I scoped the left ureter up to the mid ureteral level. A short ureteroscope was used, so I could not go up all the way up to the OPERATIVE REPORT [id number] RODDY HESTER kidney. However, it was obvious even from this view that there were no sites of obstruction. He has reflux nephropathy and then relatively contractile ureters. At this point, the bladder was emptied through the cystoscope sheath and the wire was removed entirely. The scope was removed. He came with an indwelling Dhaliwal catheter from when he was admitted with emphysematous cystitis. However, I do not think he needs to have an indwelling Dhaliwal catheter. He is already on medications to treat his BPH. I will see him in followup in about a month's time to see how his voiding symptoms are. TRANSINT:[id number] Voice Confirmation ID: [id number] DOCUMENT ID: [id number] FRANK SALEH MD at 0858 CC: [id number] DICTATION DATE: 04/25/17 1343 ARC WELDER: 04/25/17 1404 DIS IN 04/25/17 [facility] [address] [id number]
== END 2017-04-25 17:00 | disposition home or self-care (01) | DRG 689 ==
LOC: D.ER 18:23 → D.M2 23:11
PROVIDERS: Emergency Medicine; Internal Medicine; Internal Medicine Nephrology; Nurse Practitioner Acute Care; Student in an Organized Health Care Education/Training Program; ADMIT Internal Medicine Nephrology
PROC: 0T9B70Z Drainage of Bladder with Drainage Device, Via Natural or Artificial Opening (ICD-10-PCS; principal; 2017-04-17)
PROC: 5A1D70Z Performance of Urinary Filtration, Intermittent, Less than 6 Hours Per Day (ICD-10-PCS; 2017-04-19)
PROC: BT1F1ZZ Fluoroscopy of Left Kidney, Ureter and Bladder using Low Osmolar Contrast (ICD-10-PCS; 2017-04-25)
PROC: 0TJ98ZZ Inspection of Ureter, Via Natural or Artificial Opening Endoscopic (ICD-10-PCS; 2017-04-25)
DX: N30.81 Other cystitis with hematuria (principal); N18.6 End stage renal disease; N13.30 Unspecified hydronephrosis; I12.0 Hypertensive chronic kidney disease with stage 5 chronic kidney disease or end stage renal disease; I82.502 Chronic embolism and thrombosis of unspecified deep veins of left lower extremity; B96.20 Unspecified Escherichia coli [E. coli] as the cause of diseases classified elsewhere; E87.6 Hypokalemia; E11.22 Type 2 diabetes mellitus with diabetic chronic kidney disease; Z99.2 Dependence on renal dialysis; Z79.4 Long term (current) use of insulin; E11.40 Type 2 diabetes mellitus with diabetic neuropathy, unspecified; G25.3 Myoclonus; Z79.01 Long term (current) use of anticoagulants

== ENCOUNTER → 2017-06-27 09:01 | Outpatient (CLI) | payer MEDICARE, OTHER ==
[~2017-06-27 09:01] MED LIST changes: +BACTRIM 400-801 TAB PO; +FLOMAX0.4 MG PO; +RENA-VITE TABL0.8 MG PO; +ZESTRIL20 MG PO
== END | disposition home or self-care (01) ==
LOC: D.RAD 09:01
DX: C77.0 Secondary and unspecified malignant neoplasm of lymph nodes of head, face and neck (principal); D63.8 Anemia in other chronic diseases classified elsewhere; D64.9 Anemia, unspecified; D63.1 Anemia in chronic kidney disease; C44.399 Other specified malignant neoplasm of skin of other parts of face

== ENCOUNTER 2017-08-14 18:41 | Emergency (ER) | payer MEDICARE, OTHER | END 2017-08-14 22:00 | disposition home or self-care (01) | LOC: D.ER 18:41 | DX: S61.512A Laceration without foreign body of left wrist, initial encounter (principal); S51.012A Laceration without foreign body of left elbow, initial encounter; S41.112A Laceration without foreign body of left upper arm, initial encounter; W06.XXXA Fall from bed, initial encounter; Y93.89 Activity, other specified; Y92.013 Bedroom of single-family (private) house as the place of occurrence of the external cause; M25.532 Pain in left wrist; M54.2 Cervicalgia; E11.9 Type 2 diabetes mellitus without complications; Z79.4 Long term (current) use of insulin; N18.9 Chronic kidney disease, unspecified; Z99.2 Dependence on renal dialysis ==

== ENCOUNTER → 2017-10-09 18:59 | Outpatient (CLI) | payer MEDICARE, OTHER | END | disposition home or self-care (01) | LOC: D.LABREF 18:59 | DX: N39.0 Urinary tract infection, site not specified (principal) ==

== ENCOUNTER → 2017-10-29 18:50 | Outpatient (CLI) | payer MEDICARE, OTHER ==
[2017-10-29 19:38] LABS: APPEARANCE HAZY (CLEAR); BACTERIA MANY /hpf (NONE SEEN); BILIRUBIN NEGATIVE (NEGATIVE); COLOR YELLOW (YELLOW); GLUCOSE 50 mg/dL (NEGATIVE); KETONE NEGATIVE (NEGATIVE); NITRITE NEGATIVE (NEGATIVE); PROTEIN 1+ mg/dL (NEGATIVE); RED CELLS - URINE 0-5 /hpf (0-5); SPECIFIC GRAVITY 1.015 (1.005-1.020); UROBILINOGEN NORMAL (NORMAL)
[2017-11-05 16:15] LABS: AEROBE ID Final report (()); RESULT 1 Escherichia coli (())
== END | disposition home or self-care (01) ==
LOC: D.LABREF 18:50
PROVIDERS: Urology
DX: N39.0 Urinary tract infection, site not specified (principal)

== ENCOUNTER → 2017-11-26 20:11 | Outpatient (CLI) | payer MEDICARE, OTHER | END | disposition home or self-care (01) | LOC: D.LABREF 20:11 | DX: N39.0 Urinary tract infection, site not specified (principal) ==

== ENCOUNTER → 2018-01-01 10:16 | Outpatient (CLI) | payer MEDICARE, OTHER ==
[2018-01-01 11:25] LABS: APPEARANCE CLOUDY (CLEAR); BILIRUBIN NEGATIVE (NEGATIVE); COLOR YELLOW (YELLOW); GLUCOSE NEGATIVE (NEGATIVE); KETONE NEGATIVE (NEGATIVE); NITRITE NEGATIVE (NEGATIVE); PROTEIN 3+ mg/dL (NEGATIVE); UROBILINOGEN NORMAL (NORMAL)
[2018-01-01 11:26] LABS: BACTERIA MANY /hpf (NONE SEEN); EPITHELIAL CELLS 0-5 /hpf (0-5); MUCUS <1+ /lpf (NONE SEEN)
== END | disposition home or self-care (01) ==
LOC: D.LABREF 10:16
PROVIDERS: Urology
DX: N39.0 Urinary tract infection, site not specified (principal)

== ENCOUNTER → 2018-02-05 14:53 | Outpatient (CLI) | payer MEDICARE, OTHER | END | disposition home or self-care (01) | LOC: D.LABREF 14:53 | DX: N39.0 Urinary tract infection, site not specified (principal) ==

== ENCOUNTER → 2018-05-05 07:54 | Outpatient (CLI) | payer OTHER ==
[2018-05-05 08:57] LABS: ANION GAP 19.6 mmol/L (8-16); BILIRUBIN - TOTAL 0.44 mg/dL (0.2-1.3); CALCIUM 8.9 mg/dL (8.5-10.1); CARBON DIOXIDE 24.6 mmol/L (21.0-32.0); CREATININE - SERUM 7.3 mg/dL (0.6-1.3); POTASSIUM - SERUM 4.2 mmol/L (3.5-5.1); PROTEIN - SERUM 7.8 g/dL (6.4-8.2)
[2018-05-06 10:41] LABS: APPEARANCE CLOUDY (CLEAR); BILIRUBIN NEGATIVE (NEGATIVE); COLOR YELLOW GREEN (YELLOW); GLUCOSE NEGATIVE (NEGATIVE); KETONE SMALL mg/dL (NEGATIVE); NITRITE NEGATIVE (NEGATIVE); PROTEIN 1+ mg/dL (NEGATIVE); SPECIFIC GRAVITY 1.005 (1.005-1.020); UROBILINOGEN NORMAL (NORMAL)
[2018-05-06 10:43] LABS: BACTERIA MANY /hpf (NONE SEEN); EPITHELIAL CELLS 0-5 /hpf (0-5); MUCUS <1+ /lpf (NONE SEEN); RED CELLS - URINE RARE /hpf (0-5)
[2018-05-06 10:45] LABS: AMORPHOUS SEDIMENT <1+ /lpf (NONE SEEN)
== END | disposition home or self-care (01) ==
LOC: D.LAB 07:54
PROVIDERS: Orthopaedic Surgery
DX: E11.9 Type 2 diabetes mellitus without complications (principal)

== ENCOUNTER → 2018-05-23 19:10 | Outpatient (CLI) | payer OTHER | END | disposition home or self-care (01) | LOC: D.LABREF 19:10 | DX: N39.0 Urinary tract infection, site not specified (principal) ==

== ENCOUNTER 2018-06-02 08:28 | Emergency (ER) | payer OTHER | END 2018-06-02 09:30 | disposition home or self-care (01) | LOC: D.ER 08:28 | DX: S51.811A Laceration without foreign body of right forearm, initial encounter (principal); W26.8XXA Contact with other sharp object(s), not elsewhere classified, initial encounter; Y93.89 Activity, other specified; Y92.019 Unspecified place in single-family (private) house as the place of occurrence of the external cause; E11.9 Type 2 diabetes mellitus without complications; I12.9 Hypertensive chronic kidney disease with stage 1 through stage 4 chronic kidney disease, or unspecified chronic kidney disease; N18.9 Chronic kidney disease, unspecified; Z99.2 Dependence on renal dialysis ==

== ENCOUNTER 2018-08-05 09:08 | Emergency (ER) | payer OTHER ==
[~2018-08-05] VITALS: Ht 180.3 cm; Wt 84.1 kg
[~2018-08-05 09:08] MED LIST changes: +AMOXICILLIN875 MG PO
[2018-08-05 09:12] VITALS: Ht 180.3 cm; Wt 84.1 kg
[2018-08-05] MEDS ORDERED: RENVELA800 MG PO (09:15)
[2018-08-05] MEDS ORDERED: ANORO ELLIPTA1 EACH INH (09:16)
[2018-08-05] MEDS ORDERED: KEFLEX500 MG PO (10:49)
[2018-08-05 11:25] VITALS: BP 158/74
== END 2018-08-05 11:25 | disposition home or self-care (01) ==
LOC: D.ER 09:08
DX: S01.01XA Laceration without foreign body of scalp, initial encounter (principal); W10.9XXA Fall (on) (from) unspecified stairs and steps, initial encounter; Y93.89 Activity, other specified; Y92.019 Unspecified place in single-family (private) house as the place of occurrence of the external cause; E11.9 Type 2 diabetes mellitus without complications; I12.9 Hypertensive chronic kidney disease with stage 1 through stage 4 chronic kidney disease, or unspecified chronic kidney disease; N18.9 Chronic kidney disease, unspecified; Z99.2 Dependence on renal dialysis; J44.9 Chronic obstructive pulmonary disease, unspecified

== ENCOUNTER → 2018-10-09 11:54 | Outpatient (CLI) | payer MEDICARE, OTHER ==
[2018-08-05 09:12] VITALS: BMI 25.8
[~2018-10-09 11:54] MED LIST changes: +ANORO ELLIPTA1 EACH INH; +KEFLEX500 MG PO; +RENVELA800 MG PO
== END | disposition home or self-care (01) ==
LOC: D.NM 09:00
PROVIDERS: ATTEND Internal Medicine Nephrology
DX: R11.2 Nausea with vomiting, unspecified (principal)

== ENCOUNTER → 2018-11-21 13:39 | Outpatient (CLI) | payer MEDICARE, OTHER ==
[2018-08-05 09:12] VITALS: BMI 25.8
[~2018-11-21 13:39] MED LIST changes: +BAYER CHEWABLE81 MG PO; +FERRIC CITRATE210 MG PO; +NORVASC2.5 MG; +OMNICEF300 MG PO; +PHENERGAN25 M1 PO; +PROBIOTIC1 EAC1 PO; +TRAZODONE HCL150 MG PO
== END | disposition home or self-care (01) ==
LOC: D.US 13:00
PROVIDERS: ATTEND Internal Medicine Nephrology
DX: R60.0 Localized edema (principal)

== ENCOUNTER → 2018-12-02 08:48 | Outpatient (CLI) | payer MEDICARE, OTHER ==
[2018-08-05 09:12] VITALS: BMI 25.8
[~2018-12-02 08:48] MED LIST changes: -BAYER CHEWABLE81 MG PO; -FERRIC CITRATE210 MG PO; -NORVASC2.5 MG; -OMNICEF300 MG PO; -PHENERGAN25 M1 PO; -PROBIOTIC1 EAC1 PO; -TRAZODONE HCL150 MG PO
[2018-12-02 09:33] LABS: BASOPHILS 0.7 % (0-2); EOSINOPHILS 2.4 % (0-7); HEMATOCRIT 30.9 % (42.0-54.0); HEMOGLOBIN 10.6 g/dL (13.5-17.5); IMMATURE GRANULOCYTES 0.3 % (0-5); LYMPHOCYTES 21.3 % (15-50); MCHC 34.3 g/dL (31.0-37.0); MCV 96.3 fL (80.0-100.0); MEAN PLATELET VOLUME 11.2 fL (7.4-10.4); MONOCYTES 10.5 % (2-11); NEUTROPHILS 64.8 % (40-80); RBC 3.21 10x6/uL (4.20-6.10); RDW 13.8 % (11.5-14.5); WBC 5.8 10x3/uL (4.8-10.8)
[2018-12-02 09:36] LABS: PLATELET COUNT 162 10x3/uL (130-400)
[2018-12-02 09:50] LABS: ALBUMIN 3.8 g/dL (3.4-5.0); ANION GAP 13.6 mmol/L (8-16); BILIRUBIN - TOTAL 0.48 mg/dL (0.2-1.3); CALCIUM 9.3 mg/dL (8.5-10.1); CREATININE - SERUM 4.5 mg/dL (0.6-1.3); POTASSIUM - SERUM 3.6 mmol/L (3.5-5.1); PROTEIN - SERUM 7.5 g/dL (6.4-8.2)
== END | disposition home or self-care (01) ==
LOC: D.CT 08:48
PROVIDERS: ATTEND Internal Medicine Gastroenterology
DX: D64.9 Anemia, unspecified (principal)

== ENCOUNTER → 2019-01-07 20:09 | Outpatient (CLI) | payer MEDICARE, OTHER ==
[2018-08-05 09:12] VITALS: BMI 25.8
== END | disposition home or self-care (01) ==
LOC: D.LABREF 20:09
PROVIDERS: ATTEND Urology
DX: N39.0 Urinary tract infection, site not specified (principal)

== ENCOUNTER 2019-01-21 16:45 | Inpatient (IN) | payer MEDICARE, OTHER ==
[~2019-01-21] VITALS: Ht 180.3 cm; Wt 81.6 kg
--- NOTE | ~2019-01-21 | HEMODYNAMI ---
PATIENT:RODDY HESTER MEDICAL RECORD: [id number] : 33 LOCATION:[address] ADMISSION DATE: 01/21/19 Generatedon:01/22/201915:46 Patient name: RODDY HESTER Patient #: [id number] SSN: DO B: 1935 Date of study: 01/22/2019 Page: Of Hemodynamic Procedure Report Patient Data Patient Demographics Procedure consent was obtained First Name: RODDY Gender: Male Last Name: MIR : 1935 [facility] Initial: H Age: 83 year(s) Patient #: [id number] Race: Unknown Additional ID: [id number] Contact details [address]: [address] [place] [address] State: [place] City: [place] Zip code: [address] Past Medical History Allergies: No known allergies Admission Admission Data Admission Date: 01/21/2019 Admission Time: 22:06 Room #: 2104 Procedure Procedure Types Cath Procedure Peripheral Cath Diagnostic Procedure Venography Extremity Left Lower Ext. Venagram Procedure Description Procedure Date Procedure Date: 01/22/2019 Procedure Start Time: 14:35 Procedure Staff Name Function Fili Saravia MD Performing Physician Chad Jerez RT Monitor Talya Mendenhall RN Nurse CASEY GAR RT Scrub Procedure Data Cath Procedure Fluoroscopy Diagnostic fluoroscopy Total fluoroscopy Time: 9.8 time: 9.8 min min Diagnostic fluoroscopy Total fluoroscopy dose: 482 dose: 482 mGy mGy Contrast Material Contrast Material Type Amount (ml) Isovue 300 95 Procedure Medications Medication Administration Route Dosage Heparin Flush Bag added to field 3 bags (1000units/500ml NS) Lidocaine 1% added to field 20 Versed I.V. 1 mg Fentanyl I.V. 50 mcg Versed I.V. 1 mg Fentanyl I.V. 50 mcg Versed I.V. 1 mg Fentanyl I.V. 50 mcg Heparin Bolus I.V. 4000 units Hemodynamics Rest Heart Rate: 73 (bpm) Snapshots Pre Cath Intra NCS Post Cath Vital Signs Time Heart Resp SPO2 etCO2 NIBP (mmHg) Rhythm Pain Sedation Rate (ipm) (%) (mmHg) Status Level (bpm) 14:20:15 72 17 98 23.3 141/59(83) NSR 0 (11) 10(A) , No pain 14:25:14 71 17 96 0 Measuring NSR 0 (11) 10(A) , No pain 14:25:43 71 17 98 0.7 167/35(73) NSR 0 (11) 10(A) , No pain 14:30:15 71 16 95 11.2 148/40(115) NSR 0 (11) 10(A) , No pain 14:35:14 70 16 96 12 Measuring NSR 0 (11) 10(A) , No pain 14:36:38 70 13 96 9.7 Time NSR 0 (11) 10(A) Exceeded , No pain 14:39:57 70 17 98 4.5 146/42(81) NSR 0 (11) 10(A) , No pain 14:44:56 68 16 94 3 170/74(112) NSR 0 (11) 8(A) , No pain 14:49:16 67 14 96 0.7 168/71(112) NSR 0 (11) 8(A) , No pain 14:54:15 68 5 82 21 Measuring NSR 0 (11) 8(A) , No pain 14:54:31 68 6 89 25.5 160/84(113) NSR 0 (11) 8(A) , No pain 14:59:31 70 13 96 2.2 Measuring NSR 0 (11) 8(A) , No pain 14:59:53 70 13 97 16.5 168/77(111) NSR 0 (11) 8(A) , No pain 15:04:09 70 13 96 6.7 169/77(122) NSR 0 (11) 8(A) , No pain 15:08:25 70 14 97 1.5 164/79(113) NSR 0 (11) 8(A) , No pain 15:12:41 70 13 98 3 170/74(112) NSR 0 (11) 8(A) , No pain 15:16:59 70 14 92 1.5 171/74(104) NSR 0 (11) 8(A) , No pain 15:21:16 74 12 95 1.5 163/84(111) NSR 0 (11) 8(A) , No pain 15:25:27 77 12 92 0 176/86(130) NSR 0 (11) 8(A) , No pain 15:29:43 78 12 94 1.5 184/83(122) NSR 0 (11) 8(A) , No pain 15:34:42 78 16 97 40.6 Measuring NSR 0 (11) 8(A) , No pain 15:35:25 77 13 96 31.5 167/105(126) NSR 0 (11) 8(A) , No pain 15:39:37 77 13 97 13.5 184/85(123) NSR 0 (11) 8(A) , No pain 15:43:55 36.1 193/89(127) NSR 0 (11) 8(A) , No pain Medications Time Medication Route Dose Verified Delivered Reason Notes Effe ctiveness by by 14:29:17 Heparin Flush added 3 Fili Penn used for Bag to bags Rani Saravia MD procedure (1000units/500ml field NEWBY NS) 14:29:35 Lidocaine 1% added 20ml Fili Penn for local to vial Rani Saravia MD anesthetic field 14:43:20 Versed I.V. 1 mg Fili Babin for Abdirashid Saravia RN sedation 14:43:30 Fentanyl I.V. 50 Fili Talya for mcg Abdirashid Saravia RN sedation 14:51:40 Versed I.V. 1 mg Fili Babin for Abdirashid Saravia RN sedation 14:51:48 Fentanyl I.V. 50 Fili Talya for mcg Abdirashid Saravia RN sedation 15:14:10 Versed I.V. 1 mg Fili Colvinody for Abdirashid Saravia RN sedation 15:14:19 Fentanyl I.V. 50 Fili Talya for mcg Abdirashid Saravia RN sedation 15:17:07 Heparin Bolus I.V. 4000 Fili Talya Per units Abdirashid Saravia RN physician Procedure Log Time Note 14:08:00 Chad Jerez RT (R) (CV) sent for patient. Start room use. 14:08:09 Time tracking: Regular hours (M-F 7:00 - 5:00) 14:08:17 Plan of Care:Hemodynamics will remain stable., Cardiac rhythm will remain stable., Comfort level will be maintained., Respiratory function will remain adequate., Patient/ family verbilizes understanding of procedure., Procedure tolerated without complication., Recovers from procedure without complications.. 14:08:25 Patient received from Med II to IR Alert and oriented. Tansferred to table in Prone position. 14:08:29 Signed procedure consent form obtained from patient. 14:08:32 Correct patient and procedure confirmed by team. 14:08:38 ECG and BP/O2 sat monitors applied to patient. 14:08:58 Full Disclosure recording started 14:08:59 - 14:09:03 H&P Date Dictated: 01/22/2019 Within 30 days and on chart.. 14:09:04 Pre-procedure instructions explained to patient. 14:09:04 Pre-op teaching completed and patient verbalized understanding. 14:09:05 Family in waiting room. 14:09:14 Use device set IR Diagnostic 14:09:16 Bag Decanter (2002S) opened to sterile field. 14:09:16 Sterile Angiographic Pack opened to sterile field. 14:09:17 Tegaderm 4 x 4 (1626W) opened to sterile field. 14:09:31 Patient allergic to No known allergies 14:09:34 Is the patient allergic to Iodine/contrast media? No. 14:09:36 Was the patient premedicated? No 14:09:37 Is patient on blood thinner?Yes 14:09:43 ACC The patient was administered the following blood thiners within the last 24 hours: None 14:09:45 Patient diabetic? Yes. 14:09:46 If diabetic: On Metformin? No 14:09:48 - 14:09:48 ----Pre-sedation anethsthesia assessment.---- 14::54 Previous problem with sedation/anesthesia? No ? 14::55 Snore? Yes 14:09:57 Sleep apnea? No 14:09:59 Deviated septum? No 14:10:01 Opens mouth fully? Yes 14:10:02 Sticks out tongue? Yes 14:10:04 Airway obstruction? No ? 14:10:09 Dentures? No ? 14:19:01 Vital chart was started 14:19:02 Baseline sample Acquired. 14:20:53 Patient pain scale 0/10 no pain. 14:20:59 IV patent on arrival in right antecubital with 0.9% NaCl at [facility]. 14:21:01 Sharps counted by scrub and verified by R.N. 14:21: Alarms reviewed by R. N. 14:21:08 Left Knee was prepped with chlora-prep and draped in sterile fashion. 14:21:21 Baseline sample Acquired. 14:29:17 Heparin Flush Bag (1000units/500ml NS) 3 bags added to field was administered by Fili Saravia MD; used for procedure; 14:29:35 Lidocaine 1% 20ml vial added to field was administered by Fili Saravia MD; for local anesthetic; 14:32:49 Physician arrived 14:32:51 --------ALL STOP TIME OUT------ 14:32:57 Final Timeout: patient, procedure, and site verified with staff and physician. All members of the team are in agreement. 14:33:04 left Popliteal region site verified by team. 14:33:25 Fire Safety Assessment: A--An alcohol-based skin anteseptic being used preoperatively., C--Open oxygen or nitrous oxide is being used. 14:33:30 Sedation plan: IV Moderate Sedation Medication:Versed, Fentanyl 14:35:14 Procedure started. 14:35:23 Local anesthetic to left popliteal vein with Lidocaine 1% by Fili Saravia MD.INITIAL ACCESS ONLY 14:35:26 DOC .035 wire (N88791) opened to sterile field. 14:35:26 SHEATH 5FR Blythe (JMV278) opened to sterile field. 14:35:27 Micropuncture VSI 4FR kit opened to sterile field. 14:43:20 Versed 1 mg I.V. was administered by Talya Mendenhall RN; for sedation; 14:43:30 Fentanyl 50 mcg I.V. was administered by Talya Mendenhall RN; for sedation ; 14:43:40 GLIDE CATHETER 5FR ANGLED 65cm (CG507) opened to sterile field. 14:51:40 Versed 1 mg I.V. was administered by Talya Mendenhall RN; for sedation; 14:51:48 Fentanyl 50 mcg I.V. was administered by Talya Mendenhall RN; for sedation ; 14:54:43 GLIDE WIRE ANGLE 180cm (WD1625) opened to sterile field. 14:54:58 TORQUE DEVICE PLASTIC .038 ( TD01) opened to sterile field. 15:00:12 ROADRUNNER .035 145 glide wire (D65468) opened to sterile field. 15:03:00 ROBERTSON 260 wire (H40889) opened to sterile field. 15:04:23 SHEATH 6FR Destination (RSR01) opened to sterile field. 15:09:52 ROADRUNNER FIRM 260CM glide wire (U39611) opened to sterile field. 15:10:04 GLIDE CATHETER 5FR ANGLED 100cm (CG508) opened to sterile field. 15:14:10 Versed 1 mg I.V. was administered by Talya Mendenhall RN; for sedation; 15:14:19 Fentanyl 50 mcg I.V. was administered by Talya Mendenhall RN; for sedation ; 15:17:07 Heparin Bolus 4000 units I.V. was administered by Talya Mendenhall RN; Per physician; 15:18:40 INFLATOR BasixTOUCH (PN5499) opened to sterile field. 15:21:20 Inflate balloon Inflation number: 1 A Evercross 6 x 100 x 135 Balloon ([id number]) was prepped and advanced across the Undefined1 , then inflated to 14 ARLEN for 0:25 (min:sec) . 15:27:31 Access obtained with 4Fr micropunture. 15:30:08 Inflate balloon Inflation number: 2 A Evercross 8 x 6 x 135 Balloon ([id number]) was prepped and advanced across the Undefined1 , then inflated to 0 ARLEN for 0:08 (min:sec) . 15:36:51 Procedure ended.(Physican Out) 15:38:52 Fluoroscopy time 09.80 minutes. 15:38:57 Fluoroscopy dose: 482 mGy 15:38:57 Flurop Dose total: 482 15:39:04 Contrast amount:Isovue 300 95ml. 15:39:10 Sharps counted by scrub and verified by R.N. 15:39:27 Insertion/operative site no bleeding no hematoma. 15:39:50 Post-op/insertion site Left Popliteal dressed using a 4 x 4 and Tegaderm. 15:39:58 Post left popliteal vein:stable 15:41:26 Post procedure instruction explained to patient.Patient verbalizes understanding. 15:41:29 Procedure and supply charges have been captured, reviewed, submitted an d are correct. 15:45:10 Report given to [facility]. 15:45:14 Patient transfered to [facility] with Bed. 15:46:21 Vital chart was stopped Intervention Summary Intervention Notes Time ActionType Lesion and Equipment Used Action# Pressure Duration Attributes 15:21:20 Inflate Undefined1 Evercross 6 x 1 14 00:25 balloon 100 x 135 Balloon ([id number]) 15:30:08 Inflate Undefined1 Evercross 8 x 6 2 0 00:08 balloon x 135 Balloon ([id number]) Device Usage Item Name Manufacture Quantity Catalog Number Hospital Part Current M inimal Lot# / Charge Number Stock Stock Serial# Code Bag Decanter Microtek 1 [id number] 73638 269015 5 () Medical Inc. Sterile Cardinal 1 [id number] 592150 883753 5 Angiographic Health Pack Tegaderm 4 x 4 3M 1 1626W 339787 826023 542753 5 (1626W) DOC .035 wire Cook Medical 1 V08198 106459 862944 5 ([id number]) SHEATH 5FR Terumo 1 SXX931 779091 331033 873805 5 Blythe (LRY081) Micropuncture VSI VASCULAR 1 7266V 441423 994331 5 VSI 4FR kit SOLUTIONS GLIDE CATHETER Terumo 1 CG507 440934 977460 5 5FR ANGLED 65cm (CG507) GLIDE WIRE Terumo 1 OL3975 594056 349477 270196 5 ANGLE 180cm (NC9632) TORQUE DEVICE [place] 1 TD01 009042 037691 605969 5 PLASTIC .038 ( Scientific TD01) ROADRUNNER .035 [employer] 1 Z04381 849334 220666 505705 5 7655205 145 glide wire (J90911) ROBERTSON 260 wire [employer] 1 F75452 312973 12880 936440 5 (G32922) SHEATH 6FR Terumo 1 RSR01 117172 75972 128750 5 Destination (RSR01) ROADRUNNER FIRM [employer] 1 P89075 732753 147873 5 [id number] 260CM glide wire (M97358) GLIDE CATHETER Terumo 1 CG508 440301 31209 662329 4 5FR ANGLED 100cm (CG508) INFLATOR Merit 1 QU1514 478206 138989 952724 5 [facility] (OU0507) Evercross 6 x Medtronic 1 [id number] 649431 177596 901289 5 [id number] 100 x 135 Balloon ([id number]) Evercross 8 x 6 Medtronic 1 [id number] 449868 987232 260741 5 x 135 Balloon ([id number]) Signature Audit Equality Stage Time Signature Unsigned Intra-Procedure 01/22/2019 Chad 3:46:16 PM [place] RT (R) (CV) Signatures Monitor : Chad Signature : [place] RT Date : Time : [facility] [address] [place] [address]
[2019-01-21] MEDS ORDERED: BAYER CHEWABLE81 MG PO (17:28)
[2019-01-21] MEDS ORDERED: RENA-VITE TABL0.8 MG PO (17:28)
[2019-01-21] MEDS ORDERED: PROBIOTIC1 EAC1 PO (17:29)
[2019-01-21] MEDS ORDERED: FERRIC CITRATE210 MG PO (17:29)
[2019-01-21] MEDS ORDERED: TRAZODONE HCL150 MG PO (17:30)
[2019-01-21] MEDS ORDERED: PHENERGAN25 M1 PO (17:30)
--- NOTE | 2019-01-21 17:31 | NUR ---
PT STARTED ON ANTIBIOTIC THIS AM FOR UTI.
--- NOTE | 2019-01-21 19:55 | NUR ---
PT REPOSITIONED FOR COMFORT. FAMILY AT BEDSIDE.
[2019-01-21 20:20] LABS: BASOPHILS 0.5 % (0-2); EOSINOPHILS 1.4 % (0-7); HEMATOCRIT 29.3 % (42.0-54.0); HEMOGLOBIN 10.3 g/dL (13.5-17.5); IMMATURE GRANULOCYTES 0.2 % (0-5); MCH 33.6 pg (26.0-34.0); MCHC 35.2 g/dL (31.0-37.0); MCV 95.4 fL (80.0-100.0); MEAN PLATELET VOLUME 10.4 fL (7.4-10.4); MONOCYTES 11.8 % (2-11); NEUTROPHILS 75.1 % (40-80); RBC 3.07 10x6/uL (4.20-6.10); RDW 13.8 % (11.5-14.5); WBC 5.9 10x3/uL (4.8-10.8)
[2019-01-21 20:25] LABS: PLATELET COUNT 125 10x3/uL (130-400)
--- NOTE | 2019-01-21 20:35 | NUR ---
ULTRASOUND IN ROOM.
[2019-01-21 20:48] LABS: ALBUMIN 3.2 g/dL (3.4-5.0); BILIRUBIN - TOTAL 0.38 mg/dL (0.2-1.3); CALCIUM 8.4 mg/dL (8.5-10.1); CARBON DIOXIDE 29.5 mmol/L (21.0-32.0); CREATININE - SERUM 3.4 mg/dL (0.6-1.3); POTASSIUM - SERUM 3.5 mmol/L (3.5-5.1); PROTEIN - SERUM 6.8 g/dL (6.4-8.2)
[2019-01-21 20:57] LABS: APTT 35.6 SECONDS (22.8-39.4); INR 1.21 (0.85-1.17); PROTIME 14.8 SECONDS (11.6-15.0)
[2019-01-21 21:12] LABS: D-DIMER-QUANTITATIVE 2.71 ug/mLFEU (0.20-0.54)
[2019-01-21 22:00] VITALS: BP 170/65
--- NOTE | 2019-01-21 22:00 | NUR ---
PROVIDED WARM BLANKET FOR PT COMFORT. FAMILY AT BEDSIDE.
--- NOTE | 2019-01-21 22:25 | NUR ---
ATTEMPTED TO CALL REPORT TO FLOOR WITHOUT SUCCESS. RECEIVING NURSE WILL CALL BACK.
[2019-01-21] MEDS ORDERED: NORVASC2.5 MG (23:56)
[2019-01-21 23:57] VITALS: BP 166/57; BMI 25.1
[2019-01-22] VITALS (12 sets, daily range): BP systolic 139–172; BP diastolic 49–77; Ht 180.3 cm; Wt 81.6 kg
[2019-01-22 04:49] LABS: BASOPHILS 0.5 % (0-2); EOSINOPHILS 1.4 % (0-7); HEMATOCRIT 28.2 % (42.0-54.0); HEMOGLOBIN 9.8 g/dL (13.5-17.5); IMMATURE GRANULOCYTES 0.2 % (0-5); LYMPHOCYTES 13.4 % (15-50); MCH 33.1 pg (26.0-34.0); MCHC 34.8 g/dL (31.0-37.0); MCV 95.3 fL (80.0-100.0); MEAN PLATELET VOLUME 11.2 fL (7.4-10.4); NEUTROPHILS 74.5 % (40-80); PLATELET COUNT 143 10x3/uL (130-400); RBC 2.96 10x6/uL (4.20-6.10); RDW 13.6 % (11.5-14.5); WBC 6.6 10x3/uL (4.8-10.8)
[2019-01-22 05:32] LABS: ALBUMIN 3.2 g/dL (3.4-5.0); ANION GAP 11.8 mmol/L (8-16); BILIRUBIN - TOTAL 0.54 mg/dL (0.2-1.3); CALCIUM 8.6 mg/dL (8.5-10.1); CARBON DIOXIDE 30.6 mmol/L (21.0-32.0); CREATININE - SERUM 3.9 mg/dL (0.6-1.3); POTASSIUM - SERUM 3.4 mmol/L (3.5-5.1); PROTEIN - SERUM 6.5 g/dL (6.4-8.2)
--- NOTE | 2019-01-22 07:00 | NUR ---
REPORT RECEIVED. ALERT. DENIES ANY CURRENT NEEDS. CL IN REACH. RIGHT A/C SALINE LOCK INTACT.
--- NOTE | 2019-01-22 08:30 | NUR ---
HE HAS FAINT PULSE IN LEFT FOOT THAT CAN BE FOUND ONLY WITH DOPPLER. HIS RIGHT FOOT ALSO DOPPLER TO FIND PULSE BUT IT IS STRONGER THAN LEFT. HE HAS BROWN COLOR DOWN FRONT OF BOTH LEGS. LEFT FOOT/LEG IS COOLER THAN RIGHT WITH SOME REDNESS NOTED TO TOP OF FOOT BUT IT BLANCHES. HE STATES IT HURTS HIM IN HIS LEFT GROIN WHEN HE LIFTS HIS LEG
--- NOTE | 2019-01-22 11:54 | NUR ---
FSBS OF 179 AT THIS TIME. NO INSULIN WAS GIVEN PER SLIDING SCALE ORDERS DUE TO NPO STATUS. DENIES ANY CURRENT NEEDS. INCONTINENT CARE GIVEN A FEW MINUTES AGO
--- NOTE | 2019-01-22 12:05 | NUR ---
PULSES REMAIN UNCHANGED WITH USE OF DOPPLER TO FIND THEM
--- NOTE | 2019-01-22 14:15 | NUR ---
WENT TO IR AT THIS TIME. THEY WILL GET CONSENTS. HE HAS NO CHANGE IN CONDITON NOTED. RESP EVEN WITHOUT LABOR
--- NOTE | 2019-01-22 16:00 | NUR ---
RETURN FROM PROCEDURE TO OPEN UP BLOOD FLOW TO LEFT LEG, DRESSING C/D/I TO BACK OF LEFT LEG RIGHT BELOW KNEE. HE IS TO LAY FLAT FOR 2 HOURS. HIS AND DAUGHTER FOLLOWED HIM TO THE ROOM BUT LEFT SHORTLY AFTER STATED THEY COULD NOT STAY ANY LONGER. HE IS SNORING BUT DOES WAKE UP AT TIMES AND IS REORIENT AND RETURN TO SLEEP. VSS WITH O2 ON AT 2LPM PER N/C. O2 SAT IS 96%, RESP 18 B/P IS 139/77 AND HR IS 67. PULSE IS PALPABLE AND FOOT FEELS SLIGHTLY WARMER
--- NOTE | 2019-01-22 17:25 | NUR ---
NO INSULIN GIVEN DUE TO HE IS ASLEEP FROM RECENT SURGERY AND NOT TAKING PO FLUIDS AT THIS TIME. SITE BELOW LEFT KNEE ON BACK OF LEG DRESSING REMAINS INTACT CLEAN AND DRY WITH NO HEMATOMA NOTED NO BLEEDING NOTED. PULSE TO FOOT REMAINS UNCHANGED FROM EARLIER. HE DOES AROUSE BUT FALLS BACK ASLEEP. VSS. REMINDED SEVERAL TIMES TO KEEP LEG STRAIGHT BECAUSE HE LIKE TO BEND IT UP
--- NOTE | 2019-01-22 19:15 | NUR ---
PT ALERT AND ORIENTED. HAS INCISION BEHIND THE LEFT KNEE. CLEAN AND DRY. IV IS SALINE LOCKED. CLEAN AND DRY. 96% ON ROOM AIR. REPORTS NO ISSUES AT THIS TIME. NO COMLPAINTS OF PAIN. CPOC.
[2019-01-23] VITALS: BP 158/63
[2019-01-23 04:00] VITALS: BP 173/67
--- NOTE | 2019-01-23 06:26 | NUR ---
RECEIVED ORDER FROM DR. OLMOS TO CALL DIALYSIS AND OBTAIN PATIENTS MED LIST TO RESTART HOME MEDS. MEDINA FROM [facility] STATED SHE WOULD FAX OVER THE LIST SO WE COULD RESTART. PROVIDED FAX NUMBER.
--- NOTE | 2019-01-23 06:55 | NUR ---
REPORT RECEIVED. HE WAS ASLEEP BUT WOKE WHEN I ENTERED THE ROOM. HIS INCISION SITE TO BACK OF LEFT LEG BELOW THE KNEE IS CLEAN DRY AND INTACT. NO BLEEDING AND NO HEMATOMA NOTED. HIS LEG IS WARM TO TOUCH WITH PEDAL PULSE PRESENT. HE STATES IT FEELS SO MUCH BETTER. SCD IS INTACT TO RIGHT LEG, CAREPLAN REVIEW DONE WITH SAFETY PRECAUTIONS IN PLACE. BED IN LOW POSITION AND LOCKED. BED ALARM IS ON. CL IN REACH
[2019-01-23 08:21] VITALS: BP 164/66
--- NOTE | 2019-01-23 10:00 | NUR ---
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 I ASSISTED HIM TO THE BATHROOM AND HE DID HAVE A BM. HE WAS ABLE TO AMBULATE WITH ASSIST
[2019-01-23 12:09] VITALS: BP 146/64
--- NOTE | 2019-01-23 13:36 | NUR ---
CALLED DIALYSIS SEVERAL TIMES TODAY, CALLED ICU AND SPOKE WITH THEM. THEY ARE DOING PTS IN ICU BUT THEY DO HAVE HIM DOWN TO GO TODAY AND WILL CALL WHEN READY
--- NOTE | 2019-01-23 15:40 | MORECARE ---
CASE MANAGEMENT DISCHARGE SUMMARY PATIENT: RODDY HESTER UNIT: [id number] ADM DATE: 01/21/19 AGE: 83 : 34 SEX: M ROOM/BED: D.2104 AUTHOR: IVAN,DOC PHYSICIAN: REFERRING PHYSICIAN: HELIO INFANTE MD DATE OF SERVICE: 01/23/19 Discharge Plan Patient Name: RODDY HESTER Facility: [facility]:[place] : 1935 Planned Disposition: Home Anticipated Discharge Date: 01/23/19 Discharge Date: Expected LOS: 2 Initial Reviewer: [email or web address] Initial Review Date: 01/23/2019 Generated: 01/23/19 4:40 pm Comments DCP- Discharge Planning Updated by [email or web address]: Todd Majano on 01/23/19 2:[address] Patient Name: RODDY HESTER Admission Status: ER Accout number: [id number] Admission Date: 01-21-2019 : 1935 Admission Diagnosis: Attending: HELIO INFANTE Current LOS: 2 Anticipated DC Date: 01-23-2019 Planned Disposition: Home Primary Insurance: MEDICARE A & B Discharge Planning Comments: CM MET WITH PT IN ROOM TO DISCUSS DISCHARGE PLANNING AND NEEDS. PT REPORTS LIVING AT HOME WITH HIS SPOUSE AND ADULT DAUGHTER WHO ASSISTS WITH MEDICATION MANAGEMENT. FAMILY ASSISTS WITH TRANSPORTATION TO AND FROM [facility], 0945 AM. PT HAS A WALKER AND WHEELCHAIR WITH NO MEDICAL EQUIPMENT PROVIDER PREFERENCE. PT HAS NO OUTSIDE SERVICES ASSISTING IN THE HOME. CM DISCUSSED AVAILABILITY OF HOME HEALTH, REHAB SERVICES AND MEDICAL EQUIPMENT. PT DENIES DISCHARGE NEEDS, REPORTS HIS DAUGHTER WILL PICK HIM UP FOR DISCHARGE HOME. IMPORTANT MESSAGE FROM MEDICARE PROVIDED AND EXPLAINED. Environmental Consultant: Todd Majano DCPIA - Discharge Planning Initial Assessment Updated by [email or web address]: Todd Majano on 01/23/19 3:38 pm * Is the patient Alert and Oriented? Yes * How many steps to enter\exit or inside your home? NONE * PCP DR. SUMNER OR SENG TIMMONS AT [facility] * Pharmacy [facility] [address] [place] OR [place] MA[place] ORDER * Preadmission Environment Home with Family * ADLs Partial Dependent * Partial ADLs (Assistance needed) Medication Management * Equipment Walker Wheelchair * Other Equipment NO MEDICAL EQIPMENT PROVIDER PREFERENCE * List name and contact numbers for known caregivers / representatives who currently or will assist patient after discharge: MARGE GARCIA, DTR, * Verbal permission to speak to the caregivers and representatives has been obtained from the patient. N/A * Community resources currently utilized Other * Please name any agencies selected above. OUTPATIENT DIALYSIS, [facility], MWF, 0945AM, SON DRIVES TO DIALYSIS, DTR DRIVES HOME FROM DIALYSIS * Additional services required to return to the preadmission environment? No * Can the patient safely return to the preadmission environment? Yes * Has this patient been hospitalized within the prior 30 days at any hospital? No Coverage Notice Reviewer: [id number] - Todd Majano Notice Issued Date-Time: 01/23/2019 10:00 Notice Type: IM Discharge Notice Notice Delivered To: Patient Relationship to Patient: Gold Layer Name: Delivery Method: HAND - Hand Delivered Amberly Days: Prior Verbal Notification: Recipient Understood Notice: Yes Recipient Signature: Yes Med Rec Note Co-signed by Attending: Coverage Notice Comment: Patient Name: RODDY HESTER Page [phone] at 1540 All edits/amendments must be made on the electronic document DICTATION DATE: 01/23/19 1540 FOUNDRY TENDER: RAGHAV 01/23/19 1540 RPT#: [id number] DC DATE: STATUS: ADM IN [facility] [address] [place] [address] END OF REPORT
--- NOTE | 2019-01-23 17:00 | NUR ---
TRANSPORTED DOWN TO DIALYSIS VIA W/C
--- NOTE | 2019-01-23 19:45 | NUR ---
RECEIVED REPORT, PT IS DOWNSTAIRS IN DIALYSIS
[2019-01-23 20:00] VITALS: BP 172/64
[2019-01-24] VITALS: BP 165/67
--- NOTE | 2019-01-24 03:18 | NUR ---
I have reviewed this patient and I concur with the Shift Assessment completed by the Licensed Practical Nurse today this shift.
[2019-01-24 04:00] VITALS: BP 151/59
[2019-01-24 04:38] LABS: BASOPHILS 0.7 % (0-2); EOSINOPHILS 2.1 % (0-7); HEMATOCRIT 28.2 % (42.0-54.0); HEMOGLOBIN 9.6 g/dL (13.5-17.5); IMMATURE GRANULOCYTES 0.3 % (0-5); MCH 33.1 pg (26.0-34.0); MCV 97.2 fL (80.0-100.0); MONOCYTES 11.1 % (2-11); NEUTROPHILS 69.8 % (40-80); PLATELET COUNT 156 10x3/uL (130-400); RDW 13.8 % (11.5-14.5); WBC 7.7 10x3/uL (4.8-10.8)
[2019-01-24 04:53] LABS: ANION GAP 13.7 mmol/L (8-16); CALCIUM 8.7 mg/dL (8.5-10.1); CARBON DIOXIDE 29.8 mmol/L (21.0-32.0); CREATININE - SERUM 4.2 mg/dL (0.6-1.3); PHOSPHOROUS 5.8 mg/dL (2.5-4.9); POTASSIUM - SERUM 3.5 mmol/L (3.5-5.1)
--- NOTE | 2019-01-24 07:32 | NUR ---
PT AWAKE AND ORIENTED, C/O WANTING TO GO HOME. PT LYING ON BACK, O2 WAS AROUND 84%, PLACED PTS [id number] BACK ON TO 3L AND WAS ABLE TO GET HIM UP TO 95% SATURATION. PT AGREES TO WEAR O2 FROM THIS POINT ON. NO OTHER COMPLAINTS, CONCERNS, QUESTIONS, OR STATMENTS AT THIS TIME. CL IN REACH, SRX2.
[2019-01-24 08:28] VITALS: BP 145/62
--- NOTE | 2019-01-24 10:54 | NUR ---
ATTEMPTED A WALKING O2 TEST WITH PT BUT O2 NEVER GOT ABOVE 89%. DR JUÁREZ
[2019-01-24 11:35] VITALS: BP 146/119
[2019-01-24] MEDS ORDERED: OMNICEF300 MG PO (11:54)
--- NOTE | 2019-01-24 12:18 | NUR ---
I have reviewed this patient and I concur with the Shift Assessment completed by the Licensed Practical Nurse today this shift.
--- NOTE | 2019-01-24 12:59 | MORECARE ---
CASE MANAGEMENT DISCHARGE SUMMARY PATIENT: RODDY HESTER UNIT: [id number] ADM DATE: 01/21/19 AGE: 83 : 34 SEX: M ROOM/BED: D.2104 AUTHOR: IVAN,DOC PHYSICIAN: REFERRING PHYSICIAN: HELIO INFANTE MD DATE OF SERVICE: 01/24/19 Discharge Plan Patient Name: RODDY HESTER Facility: [facility]:[place] : 1935 Planned Disposition: Home Anticipated Discharge Date: 01/23/19 Discharge Date: Expected LOS: 2 Initial Reviewer: [email or web address] Initial Review Date: 01/23/2019 Generated: 01/24/19 1:59 pm Comments DCP- Discharge Planning Updated by [email or web address]: Mary Zepeda on 01/24/19 11:[address] PT TO DC WITH HOME O2. [facility] SIGNED FOR [facility] PATIENT. THEY WILL DELIVER O2 AT HOSPITAL AND AT HOME. DCP- Discharge Planning Updated by [email or web address]: Todd Majano on 01/23/19 2:[address] Patient Name: RODDY HESTER Admission Status: ER Accout number: [id number] Admission Date: 01-21-2019 : 1935 Admission Diagnosis: Attending: HELIO INFANTE Current LOS: 2 Anticipated DC Date: 01-23-2019 Planned Disposition: Home Primary Insurance: MEDICARE A & B Discharge Planning Comments: CM MET WITH PT IN ROOM TO DISCUSS DISCHARGE PLANNING AND NEEDS. PT REPORTS LIVING AT HOME WITH HIS SPOUSE AND ADULT DAUGHTER WHO ASSISTS WITH MEDICATION MANAGEMENT. FAMILY ASSISTS WITH TRANSPORTATION TO AND FROM [facility], 0945 AM. PT HAS A WALKER AND WHEELCHAIR WITH NO MEDICAL EQUIPMENT PROVIDER PREFERENCE. PT HAS NO OUTSIDE SERVICES ASSISTING IN THE HOME. CM DISCUSSED AVAILABILITY OF HOME HEALTH, REHAB SERVICES AND MEDICAL EQUIPMENT. PT DENIES DISCHARGE NEEDS, REPORTS HIS DAUGHTER WILL PICK HIM UP FOR DISCHARGE HOME. IMPORTANT MESSAGE FROM MEDICARE PROVIDED AND EXPLAINED. Call Center Assistant: Todd Majano DCPIA - Discharge Planning Initial Assessment Updated by [email or web address]: Todd Majano on 01/23/19 3:38 pm * Is the patient Alert and Oriented? Yes * How many steps to enter\exit or inside your home? NONE * PCP DR. SUMNER OR SENG TIMMONS AT [facility] * Pharmacy [facility] [address] [place] * Preadmission Environment Home with Family * ADLs Partial Dependent * Partial ADLs (Assistance needed) Medication Management * Equipment Walker Wheelchair * Other Equipment NO MEDICAL EQIPMENT PROVIDER PREFERENCE * List name and contact numbers for known caregivers / representatives who currently or will assist patient after discharge: MARGE GARCIA, DTR, * Verbal permission to speak to the caregivers and representatives has been obtained from the patient. N/A * Community resources currently utilized Other * Please name any agencies selected above. OUTPATIENT DIALYSIS, [facility], MWF, 0945AM, SON DRIVES TO DIALYSIS, DTR DRIVES HOME FROM DIALYSIS * Additional services required to return to the preadmission environment? No * Can the patient safely return to the preadmission environment? Yes * Has this patient been hospitalized within the prior 30 days at any hospital? No Coverage Notice Reviewer: [email or web address] Suman Majano Notice Issued Date-Time: 01/23/2019 10:00 Notice Type: IM Discharge Notice Notice Delivered To: Patient Relationship to Patient: Senior Web Developer Name: Delivery Method: HAND - Hand Delivered Amberly Days: Prior Verbal Notification: Recipient Understood Notice: Yes Recipient Signature: Yes Med Rec Note Co-signed by Attending: Coverage Notice Comment: Reviewer: [email or web address] Suman Zepeda Notice Issued Date-Time: 01/24/2019 12:45 Notice Type: Patient Choice Letter Notice Delivered To: Patient Relationship to Patient: Self Senior Web Developer Name: Delivery Method: HAND - Hand Delivered Amberly Days: Prior Verbal Notification: Recipient Understood Notice: Yes Recipient Signature: Yes Med Rec Note Co-signed by Attending: Coverage Notice Comment: Last DP export: 01/23/19 2:40 pm Patient Name: RODDY HESTER Page [phone] at 1259 All edits/amendments must be made on the electronic document DICTATION DATE: 01/24/19 1259 COOK ITALIAN STYLE FOOD: RAGHAV 01/24/19 1259 RPT#: [id number] DC DATE: STATUS: ADM IN [facility] [address] [place] [address] END OF REPORT
--- NOTE | 2019-01-24 14:47 | NUR ---
PT ESCORTED OUT VIA WHEELCHAIR TO POV. AT SIDE, SON DRIVING.
== END 2019-01-24 14:58 | disposition home or self-care (01) | DRG 252 ==
LOC: D.ER 16:45 → D.M2 22:06
PROVIDERS: Family Medicine; General Practice; Internal Medicine Nephrology; ADMIT Internal Medicine Nephrology; ATTEND Internal Medicine Nephrology
PROC: B51C1ZZ Fluoroscopy of Left Lower Extremity Veins using Low Osmolar Contrast (ICD-10-PCS; 2019-01-22)
PROC: 067N3ZZ Dilation of Left Femoral Vein, Percutaneous Approach (ICD-10-PCS; principal; 2019-01-22 14:01)
PROC: 5A1D70Z Performance of Urinary Filtration, Intermittent, Less than 6 Hours Per Day (ICD-10-PCS; 2019-01-23)
DX: I82.512 Chronic embolism and thrombosis of left femoral vein (principal); N18.6 End stage renal disease; J18.1 Lobar pneumonia, unspecified organism; I12.0 Hypertensive chronic kidney disease with stage 5 chronic kidney disease or end stage renal disease; I82.5Y2 Chronic embolism and thrombosis of unspecified deep veins of left proximal lower extremity; E11.22 Type 2 diabetes mellitus with diabetic chronic kidney disease; K21.9 Gastro-esophageal reflux disease without esophagitis; D63.1 Anemia in chronic kidney disease

== ENCOUNTER 2019-02-17 12:43 | Emergency (ER) | payer MEDICARE, OTHER ==
[~2019-02-17] VITALS: Ht 180.3 cm; Wt 82.7 kg
[~2019-02-17 12:43] MED LIST changes: +BAYER CHEWABLE81 MG PO; +FERRIC CITRATE210 MG PO; +NORVASC2.5 MG; +OMNICEF300 MG PO; +PHENERGAN25 M1 PO; +PROBIOTIC1 EAC1 PO; +TRAZODONE HCL150 MG PO
[2019-02-17 12:54] VITALS: Ht 180.3 cm; Wt 82.7 kg
[2019-02-17 15:08] LABS: BASOPHILS 0.4 % (0-2); EOSINOPHILS 2.6 % (0-7); HEMATOCRIT 26.5 % (42.0-54.0); IMMATURE GRANULOCYTES 0.2 % (0-5); MCH 32.7 pg (26.0-34.0); MCV 96.4 fL (80.0-100.0); MEAN PLATELET VOLUME 10.6 fL (7.4-10.4); MONOCYTES 10.5 % (2-11); NEUTROPHILS 66.3 % (40-80); PLATELET COUNT 130 10x3/uL (130-400); RBC 2.75 10x6/uL (4.20-6.10); RDW 14.1 % (11.5-14.5); WBC 4.7 10x3/uL (4.8-10.8)
[2019-02-17 15:31] LABS: ALBUMIN 3.2 g/dL (3.4-5.0); ANION GAP 14.5 mmol/L (8-16); BILIRUBIN - TOTAL 0.42 mg/dL (0.2-1.3); CALCIUM 8.6 mg/dL (8.5-10.1); CARBON DIOXIDE 27.9 mmol/L (21.0-32.0); CREATININE - SERUM 4.7 mg/dL (0.6-1.3); POTASSIUM - SERUM 3.4 mmol/L (3.5-5.1); PROTEIN - SERUM 6.9 g/dL (6.4-8.2)
[2019-02-17 15:50] VITALS: BP 172/65
== END 2019-02-17 15:53 | disposition home or self-care (01) ==
LOC: D.ER 12:43
PROVIDERS: Family Medicine
DX: T82.838A Hemorrhage due to vascular prosthetic devices, implants and grafts, initial encounter (principal)

== ENCOUNTER → 2019-03-11 19:47 | Outpatient (CLI) | payer MEDICARE, OTHER ==
[2019-02-17 12:54] VITALS: BMI 25.4
[2019-03-21 16:08] LABS: RESULT 1 Escherichia coli (())
[2019-03-22 16:08] LABS: AEROBE ID Final report (())
== END | disposition home or self-care (01) ==
LOC: D.LABREF 19:47
PROVIDERS: ATTEND Urology
DX: R39.198 Other difficulties with micturition (principal)

== ENCOUNTER → 2019-04-08 18:23 | Outpatient (CLI) | payer MEDICARE, OTHER ==
[2019-02-17 12:54] VITALS: BMI 25.4
[2019-04-17 19:08] LABS: AEROBE ID Final report (()); RESULT 1 Escherichia coli (())
== END | disposition home or self-care (01) ==
LOC: D.LABREF 18:23
PROVIDERS: ATTEND Urology
DX: D72.819 Decreased white blood cell count, unspecified (principal); R31.9 Hematuria, unspecified

== ENCOUNTER 2019-04-12 17:29 | Emergency (ER) | payer MEDICARE, OTHER ==
[~2019-04-12] VITALS: Ht 180.3 cm; Wt 81.8 kg
[2019-04-12 17:30] VITALS: Ht 180.3 cm; Wt 81.8 kg
[2019-04-12 19:52] VITALS: BP 154/55
== END 2019-04-12 18:32 | disposition home or self-care (01) ==
LOC: D.ER 17:29
DX: R04.0 Epistaxis (principal); W19.XXXA Unspecified fall, initial encounter; E11.9 Type 2 diabetes mellitus without complications; I10 Essential (primary) hypertension; J44.9 Chronic obstructive pulmonary disease, unspecified; K21.9 Gastro-esophageal reflux disease without esophagitis

== ENCOUNTER → 2019-04-14 13:21 | Outpatient (CLI) | payer MEDICARE, OTHER ==
[2019-04-12 17:30] VITALS: BMI 25.1
== END | disposition home or self-care (01) ==
LOC: D.US 13:21
PROVIDERS: ATTEND Internal Medicine Nephrology
DX: R55 Syncope and collapse (principal)

== ENCOUNTER → 2019-05-06 21:39 | Outpatient (CLI) | payer MEDICARE, OTHER ==
[2019-04-12 17:30] VITALS: BMI 25.1
== END | disposition home or self-care (01) ==
LOC: D.LABREF 21:39
PROVIDERS: ATTEND Urology
DX: N39.0 Urinary tract infection, site not specified (principal)

== ENCOUNTER 2019-07-22 14:13 | Emergency (ER) | payer MEDICARE, OTHER ==
[~2019-07-22] VITALS: Ht 180.3 cm; Wt 81.8 kg
[2019-07-22 14:30] VITALS: BP 163/63; Ht 180.3 cm; Wt 81.8 kg
== END 2019-07-22 17:37 | disposition left against medical advice (07) ==
LOC: D.ER 14:13
DX: R31.9 Hematuria, unspecified (principal)

== ENCOUNTER 2019-11-30 06:52 | Emergency (ER) | payer MEDICARE, OTHER ==
[~2019-11-30] VITALS: Ht 180.3 cm; Wt 82.6 kg
[2019-11-30 06:57] VITALS: Ht 180.3 cm; Wt 82.6 kg
[2019-11-30 09:25] VITALS: BP 162/86
== END 2019-11-30 09:26 ==
LOC: D.ER 06:52
DX: S01.01XA Laceration without foreign body of scalp, initial encounter (principal); W19.XXXA Unspecified fall, initial encounter; Y93.9 Activity, unspecified; Y92.9 Unspecified place or not applicable; E11.9 Type 2 diabetes mellitus without complications; I10 Essential (primary) hypertension; Z79.4 Long term (current) use of insulin

== ENCOUNTER 2020-02-11 08:00 | Outpatient (CLI) | payer MEDICARE, OTHER ==
[~2020-02-11] VITALS: Ht 180.3 cm; Wt 70.5 kg
[2020-02-11 09:26] VITALS: Ht 180.3 cm; Wt 70.5 kg
--- NOTE | 2020-02-11 12:38 | NUR ---
1200 IV REMOVED AND INSTRUCTIONS GIVEN TO PT AND FAMILY
== END 2020-02-11 12:10 | disposition home or self-care (01) ==
LOC: D.OPS 08:00
PROVIDERS: ATTEND Internal Medicine
DX: D64.89 Other specified anemias (principal)